=== PATIENT | female | born 1960 | race Caucasian/White ===

== ENCOUNTER 2016-10-04 19:26 | Emergency (ER) | payer OTHER ==
[~2016-10-04] VITALS: Ht 167.6 cm; Wt 89.8 kg
[~2016-10-04 19:26] MED LIST: ADDERALL XR 1010 MG PO; ADDERALL XR 3030 MG PO; DOCUSATE SODIU100 MG PO; IRON325 M1 PO; LOVENOX40 MG/0.4 SC; METHADONE HCL40 MG PO; MORPHINE SULFAT15 M1 PO; POTASSIUM-9999 MG PO; TRAZODONE HCL100 MG PO; UNABLEOBTAIN
[2016-10-04 20:57] LABS: HEMATOCRIT 38.8 % (36.0-46.0); MCH 32.4 PG (29.0-34.0); MCHC 34.5 G/DL (30.0-36.0); MCV 93.9 FL (83-99); RED BLOOD COUNT 4.13 M/uL (3.80-5.20); WHITE BLOOD COUNT 9.8 K/uL (4.1-10.2)
[2016-10-04 21:05] LABS: CHLORIDE 101 mEq/L (99-109); SODIUM 132 mEq/L (136-147)
[2016-10-04 21:07] LABS: GLUCOSE 69 mg/dL (70-99)
[2016-10-04 21:08] LABS: ANION GAP 9 MEQ/L (2-14)
[2016-10-04 21:11] LABS: GFR ESTIMATE (CALCULATED) > 59 mL/min/
[2016-10-04 21:12] LABS: UREA NITROGEN (BUN) 13 mg/dL (9-23)
[2016-10-04 21:35] LABS: ABS NEUTROPHIL COUNT 8.6; ANISOCYTOSIS 1+; BAND NEUTROPHILS 16.8 % (0-8.0); EOSINOPHIL ABS CT 0.1; EOSINOPHILS 0.9 % (0-5.0); INSTRUMENT ABS NEUTROPHIL CT 8.1 K/uL; LYMPHOCYTES 0.9 % (15.0-45.0); MACROCYTES 1+; METAMYELOCYTES 2.6 %; PLAT.SUFFICIENCY DECREASED; PLATELET CLUMPS PRESENT - PLATELET COUNTS APPEARS DECREASED; SEG.NEUTROPHILS 70.8 % (46.0-76.0)
[2016-10-04 21:36] LABS: PLATELET COUNT UNABLE TO REPORT K/uL (156-360)
[2016-10-04] MEDS ORDERED: KEFLEX500 MG PO (22:46)
[2016-10-04 23:34] VITALS: BP 138/70
== END 2016-10-04 23:36 | disposition home or self-care (01) ==
LOC: EME 19:26 → EXP 19:26
DX: L03.115 Cellulitis of right lower limb (principal); L03.116 Cellulitis of left lower limb; F17.200 Nicotine dependence, unspecified, uncomplicated; Z88.0 Allergy status to penicillin
CPT/HCPCS: 80048; 81003; 83605; 85025; 99281; 99284; J0696

== ENCOUNTER 2016-10-07 17:16 | Inpatient (IN) | payer OTHER ==
[~2016-10-07] VITALS: Ht 167.6 cm; Wt 91.4 kg
[~2016-10-07 17:16] MED LIST changes: +KEFLEX500 MG PO
[2016-10-07 18:12] LABS: HEMATOCRIT 38.4 % (36.0-46.0); MCH 32.1 PG (29.0-34.0); MCHC 34.4 G/DL (30.0-36.0); MCV 93.4 FL (83-99); RBC DIS.WIDTH-CV 14.9 % (11.8-14.6); RBC DIS.WIDTH-SD 51.8 % (39-53); RED BLOOD COUNT 4.11 M/uL (3.80-5.20); WHITE BLOOD COUNT 14.1 K/uL (4.1-10.2)
[2016-10-07 18:15] LABS: PLATELET COUNT 111 K/uL (156-360)
[2016-10-07 18:24] LABS: CHLORIDE 98 mEq/L (99-109); POTASSIUM 3.1 mEq/L (3.7-5.4); SODIUM 130 mEq/L (136-147)
[2016-10-07 18:27] LABS: ANION GAP 8 MEQ/L (2-14)
[2016-10-07 18:29] LABS: GFR ESTIMATE (CALCULATED) > 59 mL/min/
[2016-10-07 18:30] LABS: GLUCOSE 185 mg/dL (70-99); UREA NITROGEN (BUN) 20 mg/dL (9-23)
[2016-10-08 01:08] LABS: TOTAL BILIRUBIN 2.5 mg/dL (0.0-1.0)
[2016-10-08 01:09] LABS: ALKALINE PHOSPHATASE 117 IU/L (3-129)
[2016-10-08 01:12] LABS: DIRECT BILIRUBIN 1.9 mg/dL (0.0-0.3)
[2016-10-08 02:56] VITALS: BP 112/62
[2016-10-08 06:58] LABS: Estimated Average Glucose 80 mg/dL (70-123)
[2016-10-08 07:00] VITALS: BP 103/55
[2016-10-08 07:00] LABS: HEMOGLOBIN A1c (GLYCOHEMOGLOB) 4.4 % HGB (Below 5.7)
[2016-10-08 07:05] LABS: HEMATOCRIT 33.6 % (36.0-46.0); MCH 32.5 PG (29.0-34.0); MCHC 34.5 G/DL (30.0-36.0); MCV 94.1 FL (83-99); RBC DIS.WIDTH-CV 14.8 % (11.8-14.6); RBC DIS.WIDTH-SD 51.9 % (39-53); RED BLOOD COUNT 3.57 M/uL (3.80-5.20); WHITE BLOOD COUNT 9.4 K/uL (4.1-10.2)
[2016-10-08 07:23] LABS: ALKALINE PHOSPHATASE 108 IU/L (3-129); ANION GAP 7 MEQ/L (2-14); CHLORIDE 104 MEQ/L (99-109); GFR ESTIMATE (CALCULATED) > 59 mL/min/; POTASSIUM 3.1 MEQ/L (3.7-5.4); SAMPLE HEMOLYSIS CHECK 0; SAMPLE ICTERIC CHECK 0; SAMPLE LIPEMIA CHECK 0; SODIUM 135 MEQ/L (136-147); TOTAL BILIRUBIN 2.1 MG/DL (0.0-1.0); UREA NITROGEN (BUN) 16 mg/dL (9-23)
[2016-10-08 07:26] LABS: GLUCOSE 96 mg/dL (70-99)
[2016-10-08 08:11] LABS: ABS NEUTROPHIL COUNT 7.9; ANISOCYTOSIS 2+; BAND NEUTROPHILS 1.8 % (0-8.0); BASOPHILS 0.9 %; BURR CELLS 1+; EOSINOPHIL ABS CT 0.1; EOSINOPHILS 0.9 % (0-5.0); HEMATOLOGY COMMENT 1 SN; INSTRUMENT ABS NEUTROPHIL CT 5.5 K/uL; LYMPHOCYTES 4.5 % (15.0-45.0); MACROCYTES 1+; MEAN PLAT.VOLUME 11.7 uM^3 (9.5-12.4); METAMYELOCYTES 3.6 %; NUCLEATED RBC'S 0.9; PLAT.SUFFICIENCY DECREASED; PLATELET COUNT 87 K/uL (156-360); POIKILOCYTOSIS 2+
[2016-10-08 10:40] LABS: ANTI-HEPATITIS A VIRUS (IGM) Nonreactive; HAV INDEX 0.14
[2016-10-08 10:42] LABS: ANTI-HEPATITIS B CORE (IGM) Nonreactive; HBC IgM INDEX 0.15; HIV-1/2 AB/AG COMBO Nonreactive
[2016-10-08 10:43] LABS: HPCA INDEX 11.98
[2016-10-08 15:49] VITALS: BP 103/64
[2016-10-08 23:30] VITALS: BP 129/73
[2016-10-09 07:33] VITALS: BP 121/68
[2016-10-09 10:48] LABS: ANION GAP 2 MEQ/L (2-14); CHLORIDE 103 MEQ/L (99-109); GFR ESTIMATE (CALCULATED) > 59 mL/min/; GLUCOSE 128 mg/dL (70-99); SAMPLE HEMOLYSIS CHECK 0; SAMPLE ICTERIC CHECK 0; SAMPLE LIPEMIA CHECK 0; SODIUM 132 MEQ/L (136-147); UREA NITROGEN (BUN) 16 mg/dL (9-23)
[2016-10-09 10:51] LABS: POTASSIUM 4.3 MEQ/L (3.7-5.4)
[2016-10-09 16:16] VITALS: BP 111/62
[2016-10-09 23:05] VITALS: BP 105/60
[2016-10-10 08:36] VITALS: BP 113/61
[2016-10-10 17:59] LABS: UR CREATININE CONCENTRATION 136.6 MG/DL
[2016-10-10 20:10] VITALS: BP 125/78
[2016-10-10 22:55] VITALS: BP 132/64
[2016-10-11 07:08] LABS: HEMATOCRIT 35.9 % (36.0-46.0); MCH 32.2 PG (29.0-34.0); MCHC 33.1 G/DL (30.0-36.0); MCV 97.3 FL (83-99); PLATELET COUNT 106 K/uL (156-360); RBC DIS.WIDTH-CV 14.9 % (11.8-14.6); RBC DIS.WIDTH-SD 54.1 % (39-53); RED BLOOD COUNT 3.69 M/uL (3.80-5.20); WHITE BLOOD COUNT 6.8 K/uL (4.1-10.2)
[2016-10-11 07:36] LABS: ANION GAP 3 MEQ/L (2-14); CHLORIDE 109 MEQ/L (99-109); GFR ESTIMATE (CALCULATED) > 59 mL/min/; POTASSIUM 4.4 MEQ/L (3.7-5.4); SAMPLE HEMOLYSIS CHECK 0; SAMPLE ICTERIC CHECK 0; SAMPLE LIPEMIA CHECK 0; SODIUM 135 MEQ/L (136-147); UREA NITROGEN (BUN) 17 mg/dL (9-23)
[2016-10-11 07:37] LABS: GLUCOSE 76 mg/dL (70-99)
[2016-10-11 07:41] VITALS: BP 118/69
[2016-10-11 15:58] VITALS: BP 117/67
[2016-10-11 23:48] VITALS: BP 129/78
[2016-10-12 07:35] VITALS: BP 112/66
[2016-10-12 15:01] VITALS: BP 133/71
[2016-10-13 00:08] VITALS: BP 146/69
[2016-10-13 07:45] VITALS: BP 129/62
[2016-10-13 15:20] VITALS: BP 107/70
[2016-10-14 00:38] VITALS: BP 139/77
[2016-10-14 06:49] LABS: GFR ESTIMATE (CALCULATED) > 59 mL/min/
[2016-10-14 08:18] VITALS: BP 114/62
[2016-10-14 08:37] LABS: HEMATOCRIT 35.5 % (36.0-46.0); MCH 31.8 PG (29.0-34.0); MCHC 32.4 G/DL (30.0-36.0); MCV 98.1 FL (83-99); MEAN PLAT.VOLUME 10.8 uM^3 (9.5-12.4); PLATELET COUNT 91 K/uL (156-360); RBC DIS.WIDTH-CV 14.4 % (11.8-14.6); RBC DIS.WIDTH-SD 52.5 % (39-53); RED BLOOD COUNT 3.62 M/uL (3.80-5.20); WHITE BLOOD COUNT 4.4 K/uL (4.1-10.2)
[2016-10-14 08:59] LABS: ANION GAP 8 MEQ/L (2-14); CHLORIDE 107 MEQ/L (99-109); GLUCOSE 65 mg/dL (70-99); POTASSIUM 4.5 MEQ/L (3.7-5.4); SODIUM 134 MEQ/L (136-147); UREA NITROGEN (BUN) 16 mg/dL (9-23)
[2016-10-14 09:00] LABS: GFR ESTIMATE (CALCULATED) > 59 mL/min/
[2016-10-14 16:00] VITALS: BP 126/70
[2016-10-14 23:25] VITALS: BP 114/67
[2016-10-15 06:55] VITALS: BP 101/53
[2016-10-15 09:47] LABS: HEMATOCRIT 30.6 % (36.0-46.0); MCH 32.6 PG (29.0-34.0); MCHC 33.3 G/DL (30.0-36.0); MCV 97.8 FL (83-99); MEAN PLAT.VOLUME 10.7 uM^3 (9.5-12.4); PLATELET COUNT 83 K/uL (156-360); RBC DIS.WIDTH-CV 14.4 % (11.8-14.6); RBC DIS.WIDTH-SD 51.8 % (39-53); RED BLOOD COUNT 3.13 M/uL (3.80-5.20); WHITE BLOOD COUNT 3.2 K/uL (4.1-10.2)
[2016-10-15 10:13] LABS: ANION GAP 4 MEQ/L (2-14); CHLORIDE 107 MEQ/L (99-109); GFR ESTIMATE (CALCULATED) > 59 mL/min/; POTASSIUM 4.4 MEQ/L (3.7-5.4); SAMPLE HEMOLYSIS CHECK 0; SAMPLE ICTERIC CHECK 0; SAMPLE LIPEMIA CHECK 0; SODIUM 134 MEQ/L (136-147); UREA NITROGEN (BUN) 14 mg/dL (9-23)
[2016-10-15 10:24] LABS: GLUCOSE 125 mg/dL (70-99)
[2016-10-15] MEDS ORDERED: ROCEPHIN 2 GM VI2 GM IV (10:53)
[2016-10-15] MEDS ORDERED: BACTROBAN OINTM22 GM TP (10:54)
[2016-10-15 11:00] VITALS: BP 104/59
[2016-10-15 18:09] VITALS: BP 118/56
== END 2016-10-15 18:09 | disposition home health service (06) | DRG 872 ==
LOC: EME 17:16 → EDOF 23:53 → 5EAST 23:53
PROVIDERS: Internal Medicine; Physician Assistant; Student in an Organized Health Care Education/Training Program
DX: A41.9 Sepsis, unspecified organism (principal); L03.116 Cellulitis of left lower limb; B95.5 Unspecified streptococcus as the cause of diseases classified elsewhere; I87.2 Venous insufficiency (chronic) (peripheral); R23.8 Other skin changes; E87.1 Hypo-osmolality and hyponatremia; E87.6 Hypokalemia; R73.9 Hyperglycemia, unspecified; I10 Essential (primary) hypertension; K21.9 Gastro-esophageal reflux disease without esophagitis; D69.6 Thrombocytopenia, unspecified; B18.2 Chronic viral hepatitis C; F11.20 Opioid dependence, uncomplicated; G89.29 Other chronic pain; M54.5 Low back pain; F17.200 Nicotine dependence, unspecified, uncomplicated; Z96.651 Presence of right artificial knee joint; Z59.0 Homelessness; Z88.0 Allergy status to penicillin
CPT/HCPCS: 73590; 73701; 80048; 80053; 80074; 80076; 80202; 81003; 82565; 82570; 83036; 83605; 83930; 83935; 84300; 85025; 85027; 86703; 87040; 87070; 87075; 87205; 93971; 99281; 99284; 99285; A6212; A6260; J0290; J0692; J0696; J1644; J1885; J3370; J7030; J7050

== ENCOUNTER 2016-10-26 14:28 | Inpatient (IN) | payer OTHER ==
[~2016-10-26] VITALS: Ht 167.6 cm; Wt 95.2 kg
[~2016-10-26 14:28] MED LIST changes: +BACTROBAN OINTM22 GM TP; +ROCEPHIN 2 GM VI2 GM IV
[2016-10-26 16:12] LABS: EOSINOPHIL (%) 4.6 % (0-5); EOSINOPHIL COUNT 0.2 K/uL (0-0.3); IMMATURE GRANULOCYTE (%) 0.3 % (0.0-0.7); INSTRUMENT ABS NEUTROPHIL CT 1.4 K/uL; LYMPHOCYTE COUNT 1.4 K/uL (1.0-2.8); MCH 31.5 PG (29.0-34.0); MCHC 33.5 G/DL (30.0-36.0); MCV 93.9 FL (83-99); MONOCYTE (%) 13.8 % (3-12); MONOCYTE COUNT 0.5 K/uL (0-0.8); NEUTROPHIL (%) 39.6 % (45-76); NEUTROPHIL COUNT 1.4 K/uL (1.8-6.4); PLATELET COUNT 103 K/uL (156-360); RBC DIS.WIDTH-CV 14.4 % (11.8-14.6); RBC DIS.WIDTH-SD 49.7 % (39-53); RED BLOOD COUNT 3.62 M/uL (3.80-5.20); WHITE BLOOD COUNT 3.5 K/uL (4.1-10.2)
[2016-10-26 16:22] LABS: CHLORIDE 102 mEq/L (99-109); POTASSIUM 3.4 mEq/L (3.7-5.4); SODIUM 136 mEq/L (136-147)
[2016-10-26 16:24] LABS: GLUCOSE 78 mg/dL (70-99)
[2016-10-26 16:25] LABS: ANION GAP 8 MEQ/L (2-14)
[2016-10-26 16:26] LABS: TOTAL BILIRUBIN 1.8 mg/dL (0.0-1.0)
[2016-10-26 16:27] LABS: ALKALINE PHOSPHATASE 118 IU/L (3-129)
[2016-10-26 16:28] LABS: GFR ESTIMATE (CALCULATED) > 59 mL/min/
[2016-10-26] MEDS ORDERED: CEPHALEXIN500 MG PO (16:28)
[2016-10-26 16:29] LABS: UREA NITROGEN (BUN) 8 mg/dL (9-23)
[2016-10-26] MEDS ORDERED: ROCEPHIN2 GM/50 ML IV (17:48)
[2016-10-26] MEDS ORDERED: DEXTROAMP-AMPHE10 MG PO (17:53)
[2016-10-26] MEDS ORDERED: DEXTROAMP-AMPHE30 MG PO (17:53)
[2016-10-26 17:54] LABS: ADD MIUA? YES; BILIRUBIN NEGATIVE; BLOOD NEGATIVE; COLOR YELLOW ((YELLOW)); GLUCOSE (STRIP) NEGATIVE; KETONES NEGATIVE; LEUKOCYTES NEGATIVE; NITRITE NEGATIVE; PROTEIN (STRIP) NEGATIVE; SPECIFIC GRAVITY 1.011 (1.000-1.030)
[2016-10-26 18:17] LABS: BACTERIA RARE /HPF; CASTS NONE SEEN /LPF; CRYSTALS NONE SEEN; EPITHELIAL CELLS 1+ /HPF; MUCUS RARE /LPF; RED BLOOD CELLS 0-5 /HPF (0-5); UCUL ADDED? NO; WHITE BLOOD CELLS 0-5 /HPF (0-5)
[2016-10-26 22:16] VITALS: BP 150/72
[2016-10-27 06:36] LABS: EOSINOPHIL (%) 7.4 % (0-5); EOSINOPHIL COUNT 0.2 K/uL (0-0.3); HEMATOCRIT 31.7 % (36.0-46.0); INSTRUMENT ABS NEUTROPHIL CT 1.1 K/uL; LYMPHOCYTE COUNT 0.9 K/uL (1.0-2.8); MCH 31.9 PG (29.0-34.0); MCHC 33.4 G/DL (30.0-36.0); MCV 95.5 FL (83-99); MEAN PLAT.VOLUME 10.2 uM^3 (9.5-12.4); MONOCYTE (%) 18.5 % (3-12); MONOCYTE COUNT 0.5 K/uL (0-0.8); NEUTROPHIL (%) 40.2 % (45-76); NEUTROPHIL COUNT 1.1 K/uL (1.8-6.4); PLATELET COUNT 85 K/uL (156-360); RBC DIS.WIDTH-CV 14.7 % (11.8-14.6); RBC DIS.WIDTH-SD 51.1 % (39-53); RED BLOOD COUNT 3.32 M/uL (3.80-5.20); WHITE BLOOD COUNT 2.7 K/uL (4.1-10.2)
[2016-10-27 06:50] VITALS: BP 119/71
[2016-10-27 07:31] LABS: ANION GAP 8 MEQ/L (2-14); CHLORIDE 107 MEQ/L (99-109); GFR ESTIMATE (CALCULATED) > 59 mL/min/; GLUCOSE 86 mg/dL (70-99); POTASSIUM 3.5 MEQ/L (3.7-5.4); SAMPLE HEMOLYSIS CHECK 0; SAMPLE ICTERIC CHECK 0; SAMPLE LIPEMIA CHECK 0; SODIUM 139 MEQ/L (136-147); UREA NITROGEN (BUN) 8 mg/dL (9-23)
[2016-10-27 15:30] VITALS: BP 119/71
[2016-10-28] VITALS: BP 128/62
[2016-10-28 05:58] LABS: HEMATOCRIT 32.3 % (36.0-46.0); MCH 32.6 PG (29.0-34.0); MCHC 34.4 G/DL (30.0-36.0); MEAN PLAT.VOLUME 10.4 uM^3 (9.5-12.4); PLATELET COUNT 80 K/uL (156-360); RBC DIS.WIDTH-CV 14.6 % (11.8-14.6); WHITE BLOOD COUNT 2.8 K/uL (4.1-10.2)
[2016-10-28 06:26] LABS: ANION GAP 5 MEQ/L (2-14); CHLORIDE 108 MEQ/L (99-109); GFR ESTIMATE (CALCULATED) > 59 mL/min/; GLUCOSE 78 mg/dL (70-99); POTASSIUM 3.3 MEQ/L (3.7-5.4); SAMPLE HEMOLYSIS CHECK 0; SAMPLE ICTERIC CHECK 0; SAMPLE LIPEMIA CHECK 0; SODIUM 139 MEQ/L (136-147); UREA NITROGEN (BUN) 8 mg/dL (9-23)
[2016-10-28 06:48] VITALS: BP 120/65
[2016-10-28 15:57] VITALS: BP 64/54
[2016-10-29 00:15] VITALS: BP 118/59
[2016-10-29 06:35] LABS: EOSINOPHIL (%) 6.3 % (0-5); EOSINOPHIL COUNT 0.2 K/uL (0-0.3); HEMATOCRIT 33.5 % (36.0-46.0); IMMATURE GRANULOCYTE (%) 0.3 % (0.0-0.7); INSTRUMENT ABS NEUTROPHIL CT 1.3 K/uL; MCH 32.9 PG (29.0-34.0); MCV 96.8 FL (83-99); MEAN PLAT.VOLUME 10.2 uM^3 (9.5-12.4); MONOCYTE COUNT 0.5 K/uL (0-0.8); NEUTROPHIL (%) 44.1 % (45-76); NEUTROPHIL COUNT 1.3 K/uL (1.8-6.4); PLATELET COUNT 83 K/uL (156-360); RBC DIS.WIDTH-CV 15.1 % (11.8-14.6); RBC DIS.WIDTH-SD 53.4 % (39-53); RED BLOOD COUNT 3.46 M/uL (3.80-5.20)
[2016-10-29 06:58] LABS: ANION GAP 10 MEQ/L (2-14); CHLORIDE 108 MEQ/L (99-109); GFR ESTIMATE (CALCULATED) > 59 mL/min/; GLUCOSE 76 mg/dL (70-99); POTASSIUM 3.7 MEQ/L (3.7-5.4); SAMPLE HEMOLYSIS CHECK 0; SAMPLE ICTERIC CHECK 0; SAMPLE LIPEMIA CHECK 0; SODIUM 137 MEQ/L (136-147); UREA NITROGEN (BUN) 8 mg/dL (9-23)
[2016-10-29 08:51] VITALS: BP 110/58
[2016-10-29] MEDS ORDERED: BACTRIM,SEPT1 TABLET PO (11:34)
[2016-10-29] MEDS ORDERED: LEVAQUIN750 MG PO (11:34)
[2016-10-29] MEDS ORDERED: NIFEDIPINE ER30 MG PO (11:52)
== END 2016-10-29 14:25 | disposition home health service (06) | DRG 918 ==
LOC: EME → EDBD 14:28 → 5EAST 17:56 → EDOF 17:56 → 5EAST 21:20
PROVIDERS: Emergency Medicine; Hospitalist; Internal Medicine; Student in an Organized Health Care Education/Training Program
DX: T63.331A Toxic effect of venom of brown recluse spider, accidental (unintentional), initial encounter (principal); D69.6 Thrombocytopenia, unspecified; F11.20 Opioid dependence, uncomplicated; L97.929 Non-pressure chronic ulcer of unspecified part of left lower leg with unspecified severity; L03.116 Cellulitis of left lower limb; Z86.19 Personal history of other infectious and parasitic diseases; I89.0 Lymphedema, not elsewhere classified; I87.8 Other specified disorders of veins; F17.210 Nicotine dependence, cigarettes, uncomplicated; M19.90 Unspecified osteoarthritis, unspecified site; G47.00 Insomnia, unspecified; G89.29 Other chronic pain; I10 Essential (primary) hypertension; K21.9 Gastro-esophageal reflux disease without esophagitis; Z59.0 Homelessness; Z68.33 Body mass index [BMI] 33.0-33.9, adult; Z74.09 Other reduced mobility; Z80.8 Family history of malignant neoplasm of other organs or systems; Z82.49 Family history of ischemic heart disease and other diseases of the circulatory system; Z91.19 Patient's noncompliance with other medical treatment and regimen; Z96.659 Presence of unspecified artificial knee joint; B95.62 Methicillin resistant Staphylococcus aureus infection as the cause of diseases classified elsewhere; B96.5 Pseudomonas (aeruginosa) (mallei) (pseudomallei) as the cause of diseases classified elsewhere; B95.5 Unspecified streptococcus as the cause of diseases classified elsewhere
CPT/HCPCS: 73590; 80048; 80053; 80076; 80202; 81003; 82550; 83605; 85025; 85027; 87040; 87070; 87075; 87077; 87147; 87186; 87205; 87801; 93970; 99281; 99285; A6260; J0690; J0692; J1644; J1885; J2270; J3370; J7030; J7050

== ENCOUNTER 2017-01-26 16:20 | Inpatient (IN) | payer OTHER ==
[~2017-01-26] VITALS: Ht 167.6 cm; Wt 96.3 kg
[~2017-01-26 16:20] MED LIST changes: +BACTRIM,SEPT1 TABLET PO; +CEPHALEXIN500 MG PO; +DEXTROAMP-AMPHE10 MG PO; +DEXTROAMP-AMPHE30 MG PO; +LEVAQUIN750 MG PO; +NIFEDIPINE ER30 MG PO; +ROCEPHIN2 GM/50 ML IV
[2017-01-26 16:43] LABS: POINT-OF-CARE METER ID UU13113702
[2017-01-26 17:44] LABS: BASE EXCESS -10.6 mEq/L (-3 to +3); BICARBONATE 16.3 mEq/L (22-26); CARBOXY HGB 2.6 % (0-5); COMMENTS - BLOOD GASES A+C+; DEVICE VENT; FI02 60 %; MECHANICAL RATE 16 resp/min; METHEMOGLOBIN 1.1 % (0-1.5); MODE ACVC; PCO2 39 mm Hg (35-45); PEEP 5 CM/H20; PO2 123 mm Hg (80-100); SITE LR; TIDAL VOLUME 400 ML; TOTAL RESP RATE 40 resp/min; pH 7.23 (7.35-7.45)
[2017-01-26 17:52] LABS: BASOPHIL COUNT 0.1 K/uL (0-0.1); EOSINOPHIL (%) 0.3 % (0-5); EOSINOPHIL COUNT 0.1 K/uL (0-0.3); HEMATOCRIT 33.5 % (36.0-46.0); IMMATURE GRANULOCYTE (%) 1.2 % (0.0-0.7); IMMATURE GRANULOCYTE COUNT 0.3 K/uL; INSTRUMENT ABS NEUTROPHIL CT 13.7 K/uL; LYMPHOCYTE COUNT 6.8 K/uL (1.0-2.8); MCH 31.2 PG (29.0-34.0); MCHC 32.8 G/DL (30.0-36.0); MCV 94.9 FL (83-99); MEAN PLAT.VOLUME 11.5 uM^3 (9.5-12.4); MONOCYTE (%) 6.4 % (3-12); MONOCYTE COUNT 1.4 K/uL (0-0.8); NEUTROPHIL (%) 61.3 % (45-76); NEUTROPHIL COUNT 13.7 K/uL (1.8-6.4); NRBC (%) 0.1 /100 WBC (0-0); PLATELET COUNT 241 K/uL (156-360); RBC DIS.WIDTH-CV 14.3 % (11.8-14.6); RBC DIS.WIDTH-SD 48.8 % (39-53); RED BLOOD COUNT 3.53 M/uL (3.80-5.20); WHITE BLOOD COUNT 22.3 K/uL (4.1-10.2)
[2017-01-26 18:00] LABS: CHLORIDE 109 mEq/L (99-109); POTASSIUM 4.4 mEq/L (3.7-5.4); SODIUM 143 mEq/L (136-147)
[2017-01-26 18:03] LABS: GLUCOSE 164 mg/dL (70-99)
[2017-01-26 18:04] LABS: ANION GAP 18 MEQ/L (2-14)
[2017-01-26 18:05] LABS: TOTAL BILIRUBIN 2.5 mg/dL (0.0-1.0)
[2017-01-26 18:06] LABS: SERUM ETHYL ALCOHOL < 10 mg/dL
[2017-01-26 18:07] LABS: ALKALINE PHOSPHATASE 91 IU/L (3-129); GFR ESTIMATE (CALCULATED) > 59 mL/min/
[2017-01-26 18:09] LABS: UREA NITROGEN (BUN) 45 mg/dL (9-23)
[2017-01-26 18:10] LABS: SALICYLATE < 5.0 MG/DL (15-30)
[2017-01-26 18:26] LABS: TROP-I INTERPRETATION NEGATIVE; TROPONIN-I 0.05 ng/mL (0.0-0.30)
[2017-01-26 19:04] LABS: ADD MIUA? NO; BILIRUBIN NEGATIVE; BLOOD NEGATIVE; COLOR AMBER ((YELLOW)); GLUCOSE (STRIP) NEGATIVE; KETONES 5; LEUKOCYTES NEGATIVE; NITRITE NEGATIVE; PROTEIN (STRIP) 30; SPECIFIC GRAVITY 1.027 (1.000-1.030); UCUL ADDED? NO
[2017-01-26 19:21] LABS: AMPHETAMINE PRESUMPTIVE POSITIVE (500 ng/mL); BARBITURATES NEGATIVE (200 ng/mL); BENZODIAZEPINES NEGATIVE (150 ng/mL); COCAINE NEGATIVE (150 ng/mL); METHADONE PRESUMPTIVE POSITIVE (200 ng/mL); METHAMPHETAMINE NEGATIVE (500 ng/mL); OPIATES (MORPHINE) NEGATIVE (100 ng/mL); OXYCODONE NEGATIVE (100 ng/mL); PHENCYCLIDINE NEGATIVE (25 ng/mL); PROPOXYPHENE NEGATIVE (300 ng/mL); THC CANNABINOIDS NEGATIVE (50 ng/mL); TRICYCLIC ANTIDEPRESSANTS PRESUMPTIVE POSITIVE (300 ng/mL)
[2017-01-26 19:22] LABS: ADD MEDTOX COMMENT Y; INTERNAL CONTROLS VALID? YES
[2017-01-26 20:21] LABS: POINT-OF-CARE METER ID UU13113702
[2017-01-26 22:00] VITALS: BP 120/70; BP 144/89
[2017-01-26 22:15] LABS: METH RESISTANT S AUREUS PCR NEGATIVE (NEGATIVE)
[2017-01-26 22:21] LABS: PROBE CHECK PASS; SPECIMEN PROCESSING CONTROL PASS
[2017-01-26 23:00] VITALS: BP 138/97
[2017-01-27] VITALS (24 sets, daily range): BP systolic 0–155; BP diastolic 0–108
[2017-01-27 01:00] LABS: BASE EXCESS -0.1 mEq/L (-3 to +3); METHEMOGLOBIN 1.6 % (0-1.5)
[2017-01-27 01:01] LABS: BICARBONATE 22.6 mEq/L (22-26); COMMENTS - BLOOD GASES C+; DEVICE VENT; FI02 30 %; INSPIRATION TIME 1.1 seconds; MECHANICAL RATE 16 resp/min; MODE AC/VC+; PCO2 29 mm Hg (35-45); PEEP 5 CM/H20; PO2 76 mm Hg (80-100); SITE RR; TIDAL VOLUME 300 ML; TOTAL RESP RATE 26 resp/min
[2017-01-27 04:42] LABS: HEMATOCRIT 26.2 % (36.0-46.0); MCH 31.5 PG (29.0-34.0); MCHC 34.4 G/DL (30.0-36.0); MCV 91.6 FL (83-99); RBC DIS.WIDTH-CV 14.1 % (11.8-14.6); RBC DIS.WIDTH-SD 46.5 % (39-53); RED BLOOD COUNT 2.86 M/uL (3.80-5.20); WHITE BLOOD COUNT 14.7 K/uL (4.1-10.2)
[2017-01-27 04:44] LABS: INTER. NORMALIZED RATIO 1.8; PROTHROMBIN TIME 20.2 SEC (10.2-12.9)
[2017-01-27 04:47] LABS: PTT 32.7 SEC (25-37)
[2017-01-27 05:49] LABS: CHLORIDE 116 mEq/L (99-109); POTASSIUM 3.6 mEq/L (3.7-5.4); SODIUM 144 mEq/L (136-147)
[2017-01-27 05:53] LABS: ANION GAP 11 MEQ/L (2-14)
[2017-01-27 05:55] LABS: MEAN PLAT.VOLUME 11.7 uM^3 (9.5-12.4)
[2017-01-27 05:56] LABS: PLAT.SUFFICIENCY ADEQUATE
[2017-01-27 06:04] LABS: GLUCOSE 150 mg/dL (70-99)
[2017-01-27 06:05] LABS: PLATELET COUNT 154 K/uL (156-360)
[2017-01-27 06:08] LABS: GFR ESTIMATE (CALCULATED) > 59 mL/min/
[2017-01-27 06:09] LABS: UREA NITROGEN (BUN) 52 mg/dL (9-23)
[2017-01-27 10:57] LABS: EOSINOPHIL (%) 0.6 % (0-5); EOSINOPHIL COUNT 0.1 K/uL (0-0.3); HEMATOCRIT 26.7 % (36.0-46.0); IMMATURE GRANULOCYTE (%) 0.5 % (0.0-0.7); IMMATURE GRANULOCYTE COUNT 0.1 K/uL; INSTRUMENT ABS NEUTROPHIL CT 8.2 K/uL; MCH 30.9 PG (29.0-34.0); MCHC 33.7 G/DL (30.0-36.0); MCV 91.8 FL (83-99); MEAN PLAT.VOLUME 11.6 uM^3 (9.5-12.4); MONOCYTE (%) 9.6 % (3-12); MONOCYTE COUNT 1.2 K/uL (0-0.8); NEUTROPHIL COUNT 8.2 K/uL (1.8-6.4); PLATELET COUNT 164 K/uL (156-360); RBC DIS.WIDTH-CV 14.5 % (11.8-14.6); RBC DIS.WIDTH-SD 47.8 % (39-53); RED BLOOD COUNT 2.91 M/uL (3.80-5.20); WHITE BLOOD COUNT 12.6 K/uL (4.1-10.2)
[2017-01-27 11:49] LABS: ANION GAP 11 MEQ/L (2-14); CHLORIDE 112 MEQ/L (99-109); GFR ESTIMATE (CALCULATED) > 59 mL/min/; GLUCOSE 148 mg/dL (70-99); MAGNESIUM 1.4 mg/dl (1.3-2.7); POTASSIUM 3.5 MEQ/L (3.7-5.4); SAMPLE HEMOLYSIS CHECK 0; SAMPLE ICTERIC CHECK 0; SAMPLE LIPEMIA CHECK 0; SODIUM 145 MEQ/L (136-147); UREA NITROGEN (BUN) 50 mg/dL (9-23)
[2017-01-28] VITALS (27 sets, daily range): BP systolic 109–155; BP diastolic 59–93
[2017-01-28 05:32] LABS: ANION GAP 6 MEQ/L (2-14); CHLORIDE 115 MEQ/L (99-109); GFR ESTIMATE (CALCULATED) > 59 mL/min/; GLUCOSE 128 mg/dL (70-99); POTASSIUM 3.4 MEQ/L (3.7-5.4); SAMPLE HEMOLYSIS CHECK 0; SAMPLE ICTERIC CHECK 0; SAMPLE LIPEMIA CHECK 0; SODIUM 144 MEQ/L (136-147); UREA NITROGEN (BUN) 36 mg/dL (9-23)
[2017-01-28 05:35] LABS: EOSINOPHIL (%) 2.5 % (0-5); EOSINOPHIL COUNT 0.2 K/uL (0-0.3); HEMATOCRIT 22.6 % (36.0-46.0); HEMATOLOGY COMMENT 1 SN; IMMATURE GRANULOCYTE (%) 0.3 % (0.0-0.7); INSTRUMENT ABS NEUTROPHIL CT 4.1 K/uL; LYMPHOCYTE COUNT 2.2 K/uL (1.0-2.8); MCH 31.1 PG (29.0-34.0); MCHC 32.7 G/DL (30.0-36.0); MONOCYTE (%) 10.3 % (3-12); MONOCYTE COUNT 0.8 K/uL (0-0.8); NEUTROPHIL (%) 55.7 % (45-76); NEUTROPHIL COUNT 4.1 K/uL (1.8-6.4); PLAT.SUFFICIENCY ADEQUATE; RBC DIS.WIDTH-CV 15.3 % (11.8-14.6); RBC DIS.WIDTH-SD 51.7 % (39-53); RED BLOOD COUNT 2.38 M/uL (3.80-5.20); WHITE BLOOD COUNT 7.3 K/uL (4.1-10.2)
[2017-01-28 05:36] LABS: PLATELET COUNT UNABLE TO REPORT K/uL (156-360)
[2017-01-28 05:39] LABS: BASE EXCESS 0.4 mEq/L (-3 to +3); BICARBONATE 24.3 mEq/L (22-26); COMMENTS - BLOOD GASES C+; DEVICE vent; FI02 30 %; METHEMOGLOBIN 1.4 % (0-1.5); MODE AC+; PCO2 35 mm Hg (35-45); PO2 87 mm Hg (80-100); SITE LR; pH 7.45 (7.35-7.45)
[2017-01-28 05:40] LABS: INSPIRATION TIME 1.1 seconds; MECHANICAL RATE 16 resp/min; PEEP 5 CM/H20; TIDAL VOLUME 300 ML; TOTAL RESP RATE 27 resp/min
[2017-01-28 08:24] LABS: MCH 31.6 PG (29.0-34.0); MCHC 33.2 G/DL (30.0-36.0); MCV 95.2 FL (83-99); MEAN PLAT.VOLUME 11.1 uM^3 (9.5-12.4); RBC DIS.WIDTH-CV 15.2 % (11.8-14.6); RBC DIS.WIDTH-SD 52.4 % (39-53); RED BLOOD COUNT 2.31 M/uL (3.80-5.20); WHITE BLOOD COUNT 6.2 K/uL (4.1-10.2)
[2017-01-28 08:37] LABS: INTER. NORMALIZED RATIO 1.5
[2017-01-28 09:00] LABS: PLATELET COUNT 110 K/uL (156-360)
[2017-01-28 14:58] LABS: HEMATOCRIT 20.7 % (36.0-46.0); MCV 95.8 FL (83-99)
[2017-01-29] VITALS (28 sets, daily range): BP systolic 85–136; BP diastolic 44–76
[2017-01-29 08:00] LABS: EOSINOPHIL (%) 3.8 % (0-5); EOSINOPHIL COUNT 0.1 K/uL (0-0.3); HEMATOCRIT 19.3 % (36.0-46.0); IMMATURE GRANULOCYTE (%) 0.5 % (0.0-0.7); INSTRUMENT ABS NEUTROPHIL CT 0.8 K/uL; LYMPHOCYTE COUNT 0.8 K/uL (1.0-2.8); MCH 30.7 PG (29.0-34.0); MCHC 32.1 G/DL (30.0-36.0); MCV 95.5 FL (83-99); MONOCYTE (%) 10.2 % (3-12); MONOCYTE COUNT 0.2 K/uL (0-0.8); NEUTROPHIL COUNT 0.8 K/uL (1.8-6.4); RBC DIS.WIDTH-CV 16.2 % (11.8-14.6); RED BLOOD COUNT 2.02 M/uL (3.80-5.20); WHITE BLOOD COUNT 1.9 K/uL (4.1-10.2)
[2017-01-29 08:14] LABS: MEAN PLAT.VOLUME 11.6 uM^3 (9.5-12.4); PLAT.SUFFICIENCY DECREASED
[2017-01-29 08:19] LABS: ANION GAP 6 MEQ/L (2-14); CHLORIDE 116 MEQ/L (99-109); GFR ESTIMATE (CALCULATED) > 59 mL/min/; GLUCOSE 91 mg/dL (70-99); MAGNESIUM 1.7 mg/dl (1.3-2.7); POTASSIUM 3.3 MEQ/L (3.7-5.4); SAMPLE HEMOLYSIS CHECK 0; SAMPLE ICTERIC CHECK 0; SAMPLE LIPEMIA CHECK 0; SODIUM 146 MEQ/L (136-147); UREA NITROGEN (BUN) 20 mg/dL (9-23)
[2017-01-29 08:20] LABS: PLATELET COUNT 66 K/uL (156-360)
[2017-01-29 19:25] LABS: EOSINOPHIL (%) 4.6 % (0-5); EOSINOPHIL COUNT 0.1 K/uL (0-0.3); HEMATOCRIT 21.4 % (36.0-46.0); INSTRUMENT ABS NEUTROPHIL CT 0.9 K/uL; LYMPHOCYTE COUNT 0.8 K/uL (1.0-2.8); MCH 31.1 PG (29.0-34.0); MCHC 33.2 G/DL (30.0-36.0); MCV 93.9 FL (83-99); MEAN PLAT.VOLUME 11.2 uM^3 (9.5-12.4); MONOCYTE (%) 9.6 % (3-12); MONOCYTE COUNT 0.2 K/uL (0-0.8); NEUTROPHIL (%) 46.2 % (45-76); NEUTROPHIL COUNT 0.9 K/uL (1.8-6.4); PLATELET COUNT 62 K/uL (156-360); RBC DIS.WIDTH-CV 16.8 % (11.8-14.6); RED BLOOD COUNT 2.28 M/uL (3.80-5.20)
[2017-01-30] VITALS (28 sets, daily range): BP systolic 94–150; BP diastolic 59–98
[2017-01-30 05:42] LABS: EOSINOPHIL (%) 4.9 % (0-5); EOSINOPHIL COUNT 0.1 K/uL (0-0.3); IMMATURE GRANULOCYTE (%) 0.5 % (0.0-0.7); LYMPHOCYTE COUNT 0.8 K/uL (1.0-2.8); MCH 31.9 PG (29.0-34.0); MCHC 33.6 G/DL (30.0-36.0); MCV 94.8 FL (83-99); MEAN PLAT.VOLUME 12.4 uM^3 (9.5-12.4); MONOCYTE (%) 10.7 % (3-12); MONOCYTE COUNT 0.2 K/uL (0-0.8); NEUTROPHIL (%) 46.3 % (45-76); RBC DIS.WIDTH-CV 16.8 % (11.8-14.6); RBC DIS.WIDTH-SD 55.3 % (39-53); RED BLOOD COUNT 2.32 M/uL (3.80-5.20); WHITE BLOOD COUNT 2.1 K/uL (4.1-10.2)
[2017-01-30 05:46] LABS: PLATELET COUNT 81 K/uL (156-360)
[2017-01-30 05:50] LABS: INTER. NORMALIZED RATIO 1.3; PROTHROMBIN TIME 14.4 SEC (10.2-12.9)
[2017-01-30 05:53] LABS: PTT 26.2 SEC (25-37)
[2017-01-30 06:33] LABS: ANION GAP 5 MEQ/L (2-14); CHLORIDE 115 MEQ/L (99-109); GFR ESTIMATE (CALCULATED) > 59 mL/min/; GLUCOSE 90 mg/dL (70-99); MAGNESIUM 1.9 mg/dl (1.3-2.7); POTASSIUM 3.8 MEQ/L (3.7-5.4); SAMPLE HEMOLYSIS CHECK 1; SAMPLE ICTERIC CHECK 0; SAMPLE LIPEMIA CHECK 0; SODIUM 144 MEQ/L (136-147); UREA NITROGEN (BUN) 18 mg/dL (9-23)
[2017-01-30 16:52] LABS: MCV 92.5 FL (83-99)
[2017-01-31] VITALS (13 sets, daily range): BP systolic 100–133; BP diastolic 63–90
[2017-01-31 08:38] LABS: HEMATOCRIT 25.4 % (36.0-46.0); MCH 31.1 PG (29.0-34.0); MCHC 34.3 G/DL (30.0-36.0); MCV 90.7 FL (83-99); MEAN PLAT.VOLUME 11.5 uM^3 (9.5-12.4); PLATELET COUNT 72 K/uL (156-360); RBC DIS.WIDTH-CV 16.2 % (11.8-14.6); RBC DIS.WIDTH-SD 50.6 % (39-53)
[2017-01-31 08:49] LABS: CHLORIDE 110 mEq/L (99-109); POTASSIUM 3.2 mEq/L (3.7-5.4); SODIUM 137 mEq/L (136-147)
[2017-01-31 08:50] LABS: MAGNESIUM 1.2 mg/dL (1.3-2.7)
[2017-01-31 08:51] LABS: GLUCOSE 102 mg/dL (70-99)
[2017-01-31 08:52] LABS: ANION GAP 5 MEQ/L (2-14)
[2017-01-31 08:55] LABS: GFR ESTIMATE (CALCULATED) > 59 mL/min/
[2017-01-31 08:56] LABS: UREA NITROGEN (BUN) 12 mg/dL (9-23)
[2017-01-31] MEDS ORDERED: METHADOSE40 MG PO (10:43)
[2017-01-31] MEDS ORDERED: DESYREL100 MG PO (10:44)
[2017-01-31] MEDS ORDERED: ADDERALL XR 2020 MG PO ×2 (10:46)
[2017-01-31 11:58] LABS: C DIFF TOXIN NEGATIVE (NEGATIVE)
[2017-01-31 12:01] LABS: PROBE CHECK PASS; SPECIMEN PROCESSING CONTROL PASS
[2017-01-31 15:41] LABS: IRON 25 MCG/DL (35-150)
[2017-01-31 17:29] LABS: FERRITIN 118 NG/ML (10-291)
[2017-02-01 01:56] VITALS: BP 143/72
[2017-02-01 06:26] LABS: HEMATOCRIT 25.6 % (36.0-46.0); MCH 31.4 PG (29.0-34.0); MCHC 34.4 G/DL (30.0-36.0); MCV 91.4 FL (83-99); MEAN PLAT.VOLUME 11.7 uM^3 (9.5-12.4); PLATELET COUNT 73 K/uL (156-360); RBC DIS.WIDTH-SD 52.4 % (39-53); WHITE BLOOD COUNT 2.8 K/uL (4.1-10.2)
[2017-02-01 06:45] VITALS: BP 155/83
[2017-02-01 06:50] LABS: ANION GAP 8 MEQ/L (2-14); CHLORIDE 108 MEQ/L (99-109); GFR ESTIMATE (CALCULATED) > 59 mL/min/; GLUCOSE 109 mg/dL (70-99); POTASSIUM 3.5 MEQ/L (3.7-5.4); SAMPLE HEMOLYSIS CHECK 0; SAMPLE ICTERIC CHECK 0; SAMPLE LIPEMIA CHECK 0; SODIUM 139 MEQ/L (136-147); UREA NITROGEN (BUN) 8 mg/dL (9-23)
[2017-02-01 06:51] LABS: MAGNESIUM 1.3 mg/dl (1.3-2.7)
[2017-02-02 00:27] VITALS: BP 142/60
[2017-02-02 07:08] LABS: EOSINOPHIL (%) 7.3 % (0-5); EOSINOPHIL COUNT 0.2 K/uL (0-0.3); HEMATOCRIT 25.4 % (36.0-46.0); IMM.RETIC FRACTION 21.9 % (3-19); LYMPHOCYTE COUNT 0.8 K/uL (1.0-2.8); MCH 30.1 PG (29.0-34.0); MCHC 33.1 G/DL (30.0-36.0); MEAN PLAT.VOLUME 11.2 uM^3 (9.5-12.4); MONOCYTE (%) 16.4 % (3-12); MONOCYTE COUNT 0.4 K/uL (0-0.8); NEUTROPHIL (%) 42.3 % (45-76); PLATELET COUNT 72 K/uL (156-360); RBC DIS.WIDTH-CV 15.9 % (11.8-14.6); RBC DIS.WIDTH-SD 52.2 % (39-53); RED BLOOD COUNT 2.79 M/uL (3.80-5.20); RETIC HGB EQUIVALENT 29.9 (28-36); RETICULOCYTE COUNT 5.6 % (0.5-1.8); WHITE BLOOD COUNT 2.3 K/uL (4.1-10.2)
[2017-02-02 07:34] LABS: ALKALINE PHOSPHATASE 59 IU/L (3-129); ANION GAP 5 MEQ/L (2-14); CHLORIDE 108 MEQ/L (99-109); DIRECT BILIRUBIN 0.6 mg/dL (0.0-0.3); GFR ESTIMATE (CALCULATED) > 59 mL/min/; GLUCOSE 92 mg/dL (70-99); MAGNESIUM 1.3 mg/dl (1.3-2.7); POTASSIUM 3.5 MEQ/L (3.7-5.4); SAMPLE HEMOLYSIS CHECK 0; SAMPLE ICTERIC CHECK 0; SAMPLE LIPEMIA CHECK 0; SODIUM 138 MEQ/L (136-147); TOTAL BILIRUBIN 1.4 MG/DL (0.0-1.0); UREA NITROGEN (BUN) 5 mg/dL (9-23)
[2017-02-02 08:52] VITALS: BP 117/58
[2017-02-02 15:18] VITALS: BP 137/76
[2017-02-02 23:30] VITALS: BP 132/59
[2017-02-03 06:24] LABS: EOSINOPHIL (%) 5.2 % (0-5); EOSINOPHIL COUNT 0.1 K/uL (0-0.3); HEMATOCRIT 25.3 % (36.0-46.0); IMMATURE GRANULOCYTE (%) 0.4 % (0.0-0.7); LYMPHOCYTE COUNT 0.8 K/uL (1.0-2.8); MCH 30.2 PG (29.0-34.0); MCHC 32.8 G/DL (30.0-36.0); MEAN PLAT.VOLUME 11.8 uM^3 (9.5-12.4); MONOCYTE (%) 20.6 % (3-12); MONOCYTE COUNT 0.5 K/uL (0-0.8); NEUTROPHIL (%) 40.1 % (45-76); PLATELET COUNT 68 K/uL (156-360); RBC DIS.WIDTH-CV 15.5 % (11.8-14.6); RBC DIS.WIDTH-SD 50.9 % (39-53); RED BLOOD COUNT 2.75 M/uL (3.80-5.20); WHITE BLOOD COUNT 2.5 K/uL (4.1-10.2)
[2017-02-03 06:53] LABS: ANION GAP 4 MEQ/L (2-14); CHLORIDE 108 MEQ/L (99-109); GFR ESTIMATE (CALCULATED) > 59 mL/min/; GLUCOSE 144 mg/dL (70-99); POTASSIUM 3.5 MEQ/L (3.7-5.4); SAMPLE HEMOLYSIS CHECK 0; SAMPLE ICTERIC CHECK 0; SAMPLE LIPEMIA CHECK 0; SODIUM 137 MEQ/L (136-147); UREA NITROGEN (BUN) 6 mg/dL (9-23)
[2017-02-03 07:36] VITALS: BP 134/70
[2017-02-03 16:18] VITALS: BP 108/58
[2017-02-03 20:00] VITALS: BP 168/97
[2017-02-04 00:16] VITALS: BP 138/78
[2017-02-04 07:51] VITALS: BP 177/77
[2017-02-04] MEDS ORDERED: Thiamine,Vitamin B1 PO (08:32)
[2017-02-04] MEDS ORDERED: XIFAXAN550 MG PO (08:32)
[2017-02-04] MEDS ORDERED: PANTOPRAZOLE SO40 MG PO (08:32)
[2017-02-04] MEDS ORDERED: FOLIC ACID1 MG PO (08:32)
[2017-02-04] MEDS ORDERED: NICOTINE PATCH1 EAC2 TD (08:32)
[2017-02-04] MEDS ORDERED: GABAPENTIN100 MG PO (08:32)
[2017-02-04] MEDS ORDERED: RISPERIDONE1 MG PO (08:32)
[2017-02-04] MEDS ORDERED: THERAGRAN1 TABLET PO (08:32)
[2017-02-04 10:12] VITALS: BP 147/86
[2017-02-04 15:33] VITALS: BP 151/69
[2017-02-04 17:53] LABS: HCV RNA (LOG IU/mL) 5.94 (<1.18)
[2017-02-06 00:22] LABS: LD-1/LD-2 RATIO 0.57 (())
== END 2017-02-04 19:10 | disposition home or self-care (01) | DRG 917 ==
LOC: EME → EDBD 16:20 → ENRESERV 19:42 → EDOF 20:16 → 5EAST 20:16 → 4WEST 20:16 → ENRESERV 01-31 06:53 → CANRESERV 01-31 14:36 → ENRESERV 01-31 15:30 → 5EAST 01-31 16:47
PROVIDERS: Emergency Medicine; Internal Medicine; Internal Medicine Critical Care Medicine; Specialist
DX: T50.901A Poisoning by unspecified drugs, medicaments and biological substances, accidental (unintentional), initial encounter (principal); K72.90 Hepatic failure, unspecified without coma; J96.01 Acute respiratory failure with hypoxia; G93.41 Metabolic encephalopathy; R00.0 Tachycardia, unspecified; J98.11 Atelectasis; K74.60 Unspecified cirrhosis of liver; G92 Toxic encephalopathy; D61.818 Other pancytopenia; E87.2 Acidosis; I10 Essential (primary) hypertension; B19.20 Unspecified viral hepatitis C without hepatic coma; F11.20 Opioid dependence, uncomplicated; I89.0 Lymphedema, not elsewhere classified; F17.200 Nicotine dependence, unspecified, uncomplicated; E87.6 Hypokalemia; D63.8 Anemia in other chronic diseases classified elsewhere; D62 Acute posthemorrhagic anemia; K21.9 Gastro-esophageal reflux disease without esophagitis; G89.29 Other chronic pain; Z96.651 Presence of right artificial knee joint; F29 Unspecified psychosis not due to a substance or known physiological condition; M17.11 Unilateral primary osteoarthritis, right knee; K29.70 Gastritis, unspecified, without bleeding; I87.8 Other specified disorders of veins; F05 Delirium due to known physiological condition; K25.4 Chronic or unspecified gastric ulcer with hemorrhage; F90.9 Attention-deficit hyperactivity disorder, unspecified type; E86.0 Dehydration; R56.9 Unspecified convulsions; L03.116 Cellulitis of left lower limb; K76.6 Portal hypertension; Z87.11 Personal history of peptic ulcer disease; Z79.891 Long term (current) use of opiate analgesic; Z88.0 Allergy status to penicillin; Z68.34 Body mass index [BMI] 34.0-34.9, adult; Z80.8 Family history of malignant neoplasm of other organs or systems; Z90.49 Acquired absence of other specified parts of digestive tract
CPT/HCPCS: 36600; 70450; 71010; 74176; 80048; 80048 91; 80053; 80076; 81003; 82140; 82607; 82728; 82746; 82803; 82948; 83010 90; 83540; 83605; 83615 90; 83625 90; 83735; 84100; 84484; 84999; 85014; 85018; 85025; 85025 91; 85027; 85045; 85610; 85730; 86850; 86900; 86901; 86920; 87040; 87070; 87205; 87493; 87522 90; 87641; 88305; 88342 TC; 93005; 94002; 94003; 94640; 94640 76; 94760; 99202; 99281; 99285; C1751; C9113; G0480; J0330; J0692; J0696; J1630; J1650; J2060; J2405; J2704; J3010; J3370; J3411; J3430; J3475; J3480; J7030; J7050; J7120; P9016; S0028

== ENCOUNTER 2017-02-21 05:27 | Emergency (ER) | payer OTHER ==
[~2017-02-21] VITALS: Ht 167.6 cm; Wt 85.3 kg
[~2017-02-21 05:27] MED LIST changes: +ADDERALL XR 2020 MG PO; +DESYREL100 MG PO; +FOLIC ACID1 MG PO; +GABAPENTIN100 MG PO; +METHADOSE40 MG PO; +NICOTINE PATCH1 EAC2 TD; +PANTOPRAZOLE SO40 MG PO; +RISPERIDONE1 MG PO; +THERAGRAN1 TABLET PO; +Thiamine,Vitamin B1 PO; +XIFAXAN550 MG PO
[2017-02-21 06:25] LABS: HEMATOCRIT 29.9 % (36.0-46.0); MCHC 32.8 G/DL (30.0-36.0); MEAN PLAT.VOLUME 11.8 uM^3 (9.5-12.4); RBC DIS.WIDTH-CV 15.3 % (11.8-14.6); RBC DIS.WIDTH-SD 47.8 % (39-53); WHITE BLOOD COUNT 4.3 K/uL (4.1-10.2)
[2017-02-21 06:27] LABS: MCV 85.4 FL (83-99); PLATELET COUNT 117 K/uL (156-360)
[2017-02-21 06:31] LABS: CHLORIDE 109 mEq/L (99-109); POTASSIUM 3.5 mEq/L (3.7-5.4); SODIUM 137 mEq/L (136-147)
[2017-02-21 06:33] LABS: GLUCOSE 188 mg/dL (70-99)
[2017-02-21 06:34] LABS: ANION GAP 6 MEQ/L (2-14)
[2017-02-21 06:36] LABS: ALKALINE PHOSPHATASE 109 IU/L (3-129)
[2017-02-21 06:37] LABS: GFR ESTIMATE (CALCULATED) > 59 mL/min/
[2017-02-21 06:38] LABS: UREA NITROGEN (BUN) 11 mg/dL (9-23)
[2017-02-21 06:40] LABS: LIPASE 101 U/L (1.0-51.0)
[2017-02-21 08:37] LABS: ADD MIUA? YES; BILIRUBIN NEGATIVE; BLOOD NEGATIVE; COLOR YELLOW ((YELLOW)); GLUCOSE (STRIP) NEGATIVE; KETONES NEGATIVE; LEUKOCYTES LARGE; NITRITE NEGATIVE; PROTEIN (STRIP) NEGATIVE; SPECIFIC GRAVITY 1.008 (1.000-1.030); UROBILINOGEN 0.2 MG/DL (0.2-1.0)
[2017-02-21 08:50] LABS: BACTERIA RARE /HPF; EPITHELIAL CELLS 1+ /HPF; MUCUS TRACE /LPF; RED BLOOD CELLS 0-5 /HPF (0-5); UCUL ADDED? YES
[2017-02-21 11:16] VITALS: BP 146/88
== END 2017-02-21 11:17 | disposition home or self-care (01) ==
LOC: EME → EDBD 05:27 → EME 05:27
DX: R10.11 Right upper quadrant pain (principal); R11.2 Nausea with vomiting, unspecified; R19.7 Diarrhea, unspecified; K74.60 Unspecified cirrhosis of liver; J44.9 Chronic obstructive pulmonary disease, unspecified; K21.9 Gastro-esophageal reflux disease without esophagitis; I10 Essential (primary) hypertension; Z96.659 Presence of unspecified artificial knee joint; Z88.0 Allergy status to penicillin; F17.200 Nicotine dependence, unspecified, uncomplicated
CPT/HCPCS: 74177; 76705; 80053; 81003; 83690; 85027; 87086; 99281; 99285; J2270; J2405; J3010; J7030

== ENCOUNTER 2017-02-23 13:27 | Inpatient (IN) | payer OTHER ==
[~2017-02-23] VITALS: Ht 167.6 cm; Wt 81.8 kg
[~2017-02-23 13:27] MED LIST changes: -ADDERALL XR 2020 MG PO
[2017-02-23 14:41] LABS: EOSINOPHIL (%) 4.4 % (0-5); EOSINOPHIL COUNT 0.2 K/uL (0-0.3); HEMATOCRIT 30.6 % (36.0-46.0); IMMATURE GRANULOCYTE (%) 0.2 % (0.0-0.7); INSTRUMENT ABS NEUTROPHIL CT 2.4 K/uL; LYMPHOCYTE COUNT 1.5 K/uL (1.0-2.8); MCH 28.3 PG (29.0-34.0); MCV 85.7 FL (83-99); MEAN PLAT.VOLUME 11.9 uM^3 (9.5-12.4); MONOCYTE (%) 12.2 % (3-12); MONOCYTE COUNT 0.6 K/uL (0-0.8); NEUTROPHIL (%) 50.3 % (45-76); NEUTROPHIL COUNT 2.4 K/uL (1.8-6.4); PLATELET COUNT 116 K/uL (156-360); RBC DIS.WIDTH-CV 15.3 % (11.8-14.6); RBC DIS.WIDTH-SD 47.6 % (39-53); RED BLOOD COUNT 3.57 M/uL (3.80-5.20); WHITE BLOOD COUNT 4.7 K/uL (4.1-10.2)
[2017-02-23 14:50] LABS: CHLORIDE 111 mEq/L (99-109); POTASSIUM 3.8 mEq/L (3.7-5.4); SODIUM 141 mEq/L (136-147)
[2017-02-23 14:53] LABS: GLUCOSE 217 mg/dL (70-99)
[2017-02-23 14:54] LABS: ANION GAP 7 MEQ/L (2-14); TOTAL BILIRUBIN 0.9 mg/dL (0.0-1.0)
[2017-02-23 14:55] LABS: SERUM ETHYL ALCOHOL 27 mg/dL
[2017-02-23 14:56] LABS: ALKALINE PHOSPHATASE 103 IU/L (3-129); GFR ESTIMATE (CALCULATED) > 59 mL/min/
[2017-02-23 14:58] LABS: UREA NITROGEN (BUN) 10 mg/dL (9-23)
[2017-02-23 15:00] LABS: LIPASE 112 U/L (1.0-51.0)
[2017-02-23 17:13] LABS: ADD MIUA? YES; BILIRUBIN NEGATIVE; BLOOD NEGATIVE; COLOR YELLOW ((YELLOW)); GLUCOSE (STRIP) 150; KETONES NEGATIVE; LEUKOCYTES TRACE; NITRITE NEGATIVE; PROTEIN (STRIP) 30; SPECIFIC GRAVITY 1.021 (1.000-1.030)
[2017-02-23 17:20] LABS: BACTERIA NONE SEEN /HPF; CALCIUM OXALATE CRYSTALS 4+ /HPF; EPITHELIAL CELLS 1+ /HPF; MUCUS TRACE /LPF; RED BLOOD CELLS 0-5 /HPF (0-5); UCUL ADDED? YES
[2017-02-23 18:08] LABS: ADD MEDTOX COMMENT Y; AMPHETAMINE PRESUMPTIVE POSITIVE (500 ng/mL); BARBITURATES NEGATIVE (200 ng/mL); BENZODIAZEPINES NEGATIVE (150 ng/mL); COCAINE NEGATIVE (150 ng/mL); INTERNAL CONTROLS VALID? YES; METHADONE NEGATIVE (200 ng/mL); METHAMPHETAMINE NEGATIVE (500 ng/mL); OPIATES (MORPHINE) NEGATIVE (100 ng/mL); OXYCODONE NEGATIVE (100 ng/mL); PHENCYCLIDINE NEGATIVE (25 ng/mL); PROPOXYPHENE NEGATIVE (300 ng/mL); THC CANNABINOIDS NEGATIVE (50 ng/mL); TRICYCLIC ANTIDEPRESSANTS NEGATIVE (300 ng/mL)
[2017-02-23] MEDS ORDERED: NICODERM CQ1 EAC2 TD (18:39)
[2017-02-23] MEDS ORDERED: NEURONTIN100 MG PO (18:40)
[2017-02-23] MEDS ORDERED: NORCO 7.5/321 TABLET PO (18:41)
[2017-02-23] MEDS ORDERED: THERAGRAN1 TABLET PO (18:41)
[2017-02-23] MEDS ORDERED: ADDERALL20 MG PO (18:42)
[2017-02-23] MEDS ORDERED: DESYREL100 MG PO (18:42)
[2017-02-23] MEDS ORDERED: POTASSIUM CHLOR8 ME3 PO (18:43)
[2017-02-23 20:41] VITALS: BP 138/61
[2017-02-24 07:46] VITALS: BP 131/64
[2017-02-24] MEDS ORDERED: B-1100 MG PO (12:23)
[2017-02-24] MEDS ORDERED: FOLIC ACID1 MG PO (12:23)
[2017-02-24] MEDS ORDERED: XIFAXAN550 MG PO (12:24)
[2017-02-24 15:12] VITALS: BP 144/75
[2017-02-25 07:37] VITALS: BP 139/72
[2017-02-25] MEDS ORDERED: DESYREL100 MG PO (10:30)
[2017-02-25] MEDS ORDERED: B-1100 MG PO (10:30)
[2017-02-25] MEDS ORDERED: PANTOPRAZOLE SO40 MG PO (10:30)
[2017-02-25] MEDS ORDERED: THERAGRAN1 TABLET PO (10:30)
[2017-02-25] MEDS ORDERED: FOLIC ACID1 MG PO (10:30)
[2017-02-25] MEDS ORDERED: NEURONTIN300 MG PO (10:30)
== END 2017-02-25 13:45 | disposition home or self-care (01) | DRG 881 ==
LOC: EME 13:27 → EDBD 13:27 → EME 13:27 → 1WEST 19:00 → EDOF 19:00 → ENRESERV 20:26 → 1WEST 20:32
PROVIDERS: Emergency Medicine
DX: F43.21 Adjustment disorder with depressed mood (principal); R45.851 Suicidal ideations; Z59.0 Homelessness; F41.0 Panic disorder [episodic paroxysmal anxiety]; F11.20 Opioid dependence, uncomplicated; F19.10 Other psychoactive substance abuse, uncomplicated; F10.10 Alcohol abuse, uncomplicated; R41.0 Disorientation, unspecified; I10 Essential (primary) hypertension; K74.60 Unspecified cirrhosis of liver; B19.20 Unspecified viral hepatitis C without hepatic coma; D69.6 Thrombocytopenia, unspecified; I89.0 Lymphedema, not elsewhere classified; R60.9 Edema, unspecified; R10.9 Unspecified abdominal pain; G89.29 Other chronic pain; I87.8 Other specified disorders of veins; D64.9 Anemia, unspecified; F17.200 Nicotine dependence, unspecified, uncomplicated; M19.90 Unspecified osteoarthritis, unspecified site; R59.1 Generalized enlarged lymph nodes
CPT/HCPCS: 80053; 81003; 83690; 84999; 85025; 87086; 90839; 97150 GO; 99281; 99285; G0480; J2060; S0028

== ENCOUNTER 2017-02-28 04:06 | Inpatient (IN) | payer OTHER ==
[~2017-02-28] VITALS: Ht 167.6 cm; Wt 87.6 kg
[~2017-02-28 04:06] MED LIST changes: +ADDERALL20 MG PO; +B-1100 MG PO; +NEURONTIN100 MG PO; +NEURONTIN300 MG PO; +NICODERM CQ1 EAC2 TD; +NORCO 7.5/321 TABLET PO; +POTASSIUM CHLOR8 ME3 PO
[2017-02-28 04:44] LABS: HEMATOCRIT 28.7 % (36.0-46.0); MCH 28.7 PG (29.0-34.0); MCHC 33.1 G/DL (30.0-36.0); MCV 86.7 FL (83-99); MEAN PLAT.VOLUME 11.8 uM^3 (9.5-12.4); PLATELET COUNT 94 K/uL (156-360); RBC DIS.WIDTH-CV 15.8 % (11.8-14.6); RBC DIS.WIDTH-SD 50.3 % (39-53); RED BLOOD COUNT 3.31 M/uL (3.80-5.20); WHITE BLOOD COUNT 4.3 K/uL (4.1-10.2)
[2017-02-28 04:50] LABS: CHLORIDE 114 mEq/L (99-109); SODIUM 138 mEq/L (136-147)
[2017-02-28 04:53] LABS: GLUCOSE 186 mg/dL (70-99)
[2017-02-28 04:54] LABS: ANION GAP 3 MEQ/L (2-14); TOTAL BILIRUBIN 0.8 mg/dL (0.0-1.0)
[2017-02-28 04:56] LABS: ALKALINE PHOSPHATASE 103 IU/L (3-129)
[2017-02-28 05:00] LABS: GFR ESTIMATE (CALCULATED) > 59 mL/min/; UREA NITROGEN (BUN) 24 mg/dL (9-23)
[2017-02-28 05:11] LABS: INTER. NORMALIZED RATIO 1.2; PROTHROMBIN TIME 13.7 SEC (10.2-12.9)
[2017-02-28 05:13] LABS: PTT 28.5 SEC (25-37)
[2017-02-28 05:34] LABS: TROP-I INTERPRETATION NEGATIVE; TROPONIN-I 0.01 ng/mL (0.0-0.30)
[2017-02-28 08:12] LABS: MCV 87.8 FL (83-99)
[2017-02-28 08:23] LABS: ADD MIUA? YES; BILIRUBIN NEGATIVE; BLOOD NEGATIVE; COLOR YELLOW ((YELLOW)); GLUCOSE (STRIP) NEGATIVE; KETONES NEGATIVE; LEUKOCYTES SMALL; NITRITE NEGATIVE; PROTEIN (STRIP) NEGATIVE; SPECIFIC GRAVITY 1.017 (1.000-1.030)
[2017-02-28 08:37] LABS: BACTERIA NONE SEEN /HPF; EPITHELIAL CELLS 1+ /HPF; MUCUS TRACE /LPF; RED BLOOD CELLS 0-5 /HPF (0-5); UCUL ADDED? YES
[2017-02-28] MEDS ORDERED: ADDERALL XR 2020 MG PO ×2 (10:12)
[2017-02-28] MEDS ORDERED: GABAPENTIN100 MG PO (10:16)
[2017-02-28] MEDS ORDERED: POTASSIUM-9999 MG PO (10:16)
[2017-02-28 10:19] VITALS: BP 124/71
[2017-02-28 12:43] LABS: TYPE OF FLUID PARACENTESIS
[2017-02-28 13:00] LABS: BODY FLUID RBC'S < 1000 /MM^3 (0-100); BODY FLUID WBC'S 314 /MM^3 (0-500)
[2017-02-28 13:50] LABS: BODY FLUID LDH 59 IU/L; BODY FLUID PROTEIN < 3.0 G/DL
[2017-02-28 14:12] LABS: BODY FLUID EOSINOPHILS 0 % (0-25); MONONUCLEAR WBC'S 91 %; POLYNUCLEAR WBC'S 9 % (0-25)
[2017-02-28 14:32] LABS: IRON 32 MCG/DL (35-150); SAMPLE HEMOLYSIS CHECK 0; SAMPLE ICTERIC CHECK 0; SAMPLE LIPEMIA CHECK 1
[2017-02-28 15:13] LABS: FERRITIN 20 NG/ML (10-291)
[2017-02-28 15:18] VITALS: BP 154/90
[2017-02-28 20:02] LABS: HEMATOCRIT 29.2 % (36.0-46.0); MCV 88.8 FL (83-99)
[2017-02-28 20:33] VITALS: BP 130/73
[2017-03-01] VITALS (7 sets, daily range): BP systolic 126–150; BP diastolic 60–82
[2017-03-01 07:14] LABS: HEMATOCRIT 30.4 % (36.0-46.0); MCH 28.5 PG (29.0-34.0); MCHC 32.2 G/DL (30.0-36.0); MCV 88.4 FL (83-99); MEAN PLAT.VOLUME 11.7 uM^3 (9.5-12.4); PLATELET COUNT 86 K/uL (156-360); RBC DIS.WIDTH-SD 51.7 % (39-53); RED BLOOD COUNT 3.44 M/uL (3.80-5.20)
[2017-03-01 07:54] LABS: ALKALINE PHOSPHATASE 77 IU/L (3-129); ANION GAP 4 MEQ/L (2-14); CHLORIDE 113 MEQ/L (99-109); GFR ESTIMATE (CALCULATED) > 59 mL/min/; GLUCOSE 145 mg/dL (70-99); MAGNESIUM 1.8 mg/dl (1.3-2.7); POTASSIUM 4.7 MEQ/L (3.7-5.4); SAMPLE HEMOLYSIS CHECK 0; SAMPLE ICTERIC CHECK 0; SAMPLE LIPEMIA CHECK 0; SODIUM 140 MEQ/L (136-147); TOTAL BILIRUBIN 1.4 MG/DL (0.0-1.0); UREA NITROGEN (BUN) 23 mg/dL (9-23)
[2017-03-02 04:41] VITALS: BP 153/70
[2017-03-02 07:08] LABS: HEMATOCRIT 29.5 % (36.0-46.0); MCH 28.5 PG (29.0-34.0); MCHC 32.5 G/DL (30.0-36.0); MCV 87.5 FL (83-99); MEAN PLAT.VOLUME 11.1 uM^3 (9.5-12.4); PLATELET COUNT 80 K/uL (156-360); RBC DIS.WIDTH-CV 15.8 % (11.8-14.6); RBC DIS.WIDTH-SD 50.3 % (39-53); RED BLOOD COUNT 3.37 M/uL (3.80-5.20); WHITE BLOOD COUNT 4.2 K/uL (4.1-10.2)
[2017-03-02 07:44] VITALS: BP 141/85
[2017-03-02 11:29] VITALS: BP 138/65
[2017-03-02] MEDS ORDERED: DICYCLOMINE HCL10 MG PO (12:21)
[2017-03-02] MEDS ORDERED: ALDACTONE100 MG PO (12:21)
[2017-03-02] MEDS ORDERED: FUROSEMIDE20 MG PO (12:21)
[2017-03-02] MEDS ORDERED: TRAMADOL HCL50 MG PO (12:21)
[2017-03-02] MEDS ORDERED: GABAPENTIN300 MG PO (12:21)
== END 2017-03-02 16:56 | DRG 378 ==
LOC: EME 04:06 → 3EAST 07:35 → EDOF 07:35 → ENRESERV 07:41 → EDOF 08:03 → ENRESERV 08:59 → 3EAST 10:08
PROVIDERS: Internal Medicine; Physician Assistant
PROC: 0W9G3ZZ Drainage of Peritoneal Cavity, Percutaneous Approach (ICD-10-PCS; principal; 2017-03-01)
DX: K25.4 Chronic or unspecified gastric ulcer with hemorrhage (principal); K70.31 Alcoholic cirrhosis of liver with ascites; K70.11 Alcoholic hepatitis with ascites; B19.20 Unspecified viral hepatitis C without hepatic coma; K76.6 Portal hypertension; D69.59 Other secondary thrombocytopenia; F10.10 Alcohol abuse, uncomplicated; F12.90 Cannabis use, unspecified, uncomplicated; D64.9 Anemia, unspecified; D73.1 Hypersplenism; G89.29 Other chronic pain; I10 Essential (primary) hypertension; I89.0 Lymphedema, not elsewhere classified; Z96.651 Presence of right artificial knee joint; Z87.11 Personal history of peptic ulcer disease; Z88.0 Allergy status to penicillin; Z87.891 Personal history of nicotine dependence
CPT/HCPCS: 49083; 80053; 81003; 82728; 82945; 83540; 83615 91; 83735; 83986 90; 84157; 84466; 84484; 85014; 85018; 85027; 85610; 85730; 86850; 86900; 86901; 87070; 87075; 87086; 87205; 88108; 88305; 89051; 93005; 99281; 99285; C9113; J0696; J2270; J2354; J2405; J2765; J7050; J7120; P9047

== ENCOUNTER 2017-03-13 19:41 | Inpatient (IN) | payer OTHER ==
[~2017-03-13] VITALS: Ht 170.2 cm; Wt 85.1 kg
[~2017-03-13 19:41] MED LIST changes: +ADDERALL XR 2020 MG PO; +ALDACTONE100 MG PO; +DICYCLOMINE HCL10 MG PO; +FUROSEMIDE20 MG PO; +GABAPENTIN300 MG PO; +TRAMADOL HCL50 MG PO
[2017-03-13 20:09] LABS: MCH 28.4 PG (29.0-34.0); MCHC 33.5 G/DL (30.0-36.0); MCV 84.8 FL (83-99); MEAN PLAT.VOLUME 12.7 uM^3 (9.5-12.4); NRBC (%) 0.3 /100 WBC (0-0); PLATELET COUNT 130 K/uL (156-360); RBC DIS.WIDTH-CV 14.9 % (11.8-14.6); RBC DIS.WIDTH-SD 45.6 % (39-53); RED BLOOD COUNT 4.01 M/uL (3.80-5.20); WHITE BLOOD COUNT 6.1 K/uL (4.1-10.2)
[2017-03-13 20:18] LABS: CHLORIDE 101 mEq/L (99-109); POTASSIUM 3.6 mEq/L (3.7-5.4); SODIUM 130 mEq/L (136-147)
[2017-03-13 20:22] LABS: ANION GAP 14 MEQ/L (2-14); TOTAL BILIRUBIN 0.5 mg/dL (0.0-1.0)
[2017-03-13 20:24] LABS: ALKALINE PHOSPHATASE 131 IU/L (3-129); GFR ESTIMATE (CALCULATED) 45 mL/min/
[2017-03-13 20:25] LABS: ADD MIUA? NO; BILIRUBIN NEGATIVE; BLOOD NEGATIVE; COLOR STRAW ((YELLOW)); GLUCOSE (STRIP) >=500; KETONES NEGATIVE; LEUKOCYTES NEGATIVE; NITRITE NEGATIVE; PROTEIN (STRIP) NEGATIVE; SPECIFIC GRAVITY 1.031 (1.000-1.030); UCUL ADDED? NO; UROBILINOGEN 0.2 MG/DL (0.2-1.0)
[2017-03-13 20:25] LABS: UREA NITROGEN (BUN) 17 mg/dL (9-23)
[2017-03-13 20:27] LABS: LIPASE 124 U/L (1.0-51.0)
[2017-03-13 20:28] LABS: GLUCOSE 711 mg/dL (70-99)
[2017-03-13 21:30] LABS: CARBON DIOXIDE (BICARBONATE) 22.5 MEQ/L (20-31)
[2017-03-14 02:00] VITALS: BP 146/82
[2017-03-14 04:35] LABS: TOTAL BILIRUBIN 0.5 mg/dL (0.0-1.0)
[2017-03-14 04:37] LABS: ALKALINE PHOSPHATASE 106 IU/L (3-129)
[2017-03-14 04:39] LABS: DIRECT BILIRUBIN 0.4 mg/dL (0.0-0.3)
[2017-03-14 07:06] LABS: POINT-OF-CARE METER ID UU13113774
[2017-03-14 07:37] LABS: Estimated Average Glucose 163 mg/dL (70-123)
[2017-03-14 08:02] LABS: HEMOGLOBIN A1c (GLYCOHEMOGLOB) 7.3 % HGB (Below 5.7)
[2017-03-14 08:12] VITALS: BP 123/52
[2017-03-14 10:36] LABS: POINT-OF-CARE METER ID UU13113774
[2017-03-14 11:36] VITALS: BP 145/68
[2017-03-14 15:16] LABS: POINT-OF-CARE METER ID UU13113702
[2017-03-14 15:44] LABS: POINT-OF-CARE METER ID UU13113774
[2017-03-14 18:03] VITALS: BP 130/60
[2017-03-14 19:30] VITALS: BP 126/63
[2017-03-14 21:34] LABS: POINT-OF-CARE METER ID UU13113725
[2017-03-15] VITALS (7 sets, daily range): BP systolic 114–131; BP diastolic 55–74
[2017-03-15 05:33] LABS: POINT-OF-CARE METER ID UU13113725
[2017-03-15 06:11] LABS: EOSINOPHIL (%) 5.1 % (0-5); EOSINOPHIL COUNT 0.1 K/uL (0-0.3); HEMATOCRIT 28.2 % (36.0-46.0); IMMATURE GRANULOCYTE (%) 0.4 % (0.0-0.7); INSTRUMENT ABS NEUTROPHIL CT 1.2 K/uL; LYMPHOCYTE COUNT 0.7 K/uL (1.0-2.8); MCH 28.2 PG (29.0-34.0); MCV 82.9 FL (83-99); MONOCYTE (%) 12.8 % (3-12); MONOCYTE COUNT 0.3 K/uL (0-0.8); NEUTROPHIL (%) 50.2 % (45-76); NEUTROPHIL COUNT 1.2 K/uL (1.8-6.4); RBC DIS.WIDTH-CV 15.5 % (11.8-14.6); RBC DIS.WIDTH-SD 46.7 % (39-53); WHITE BLOOD COUNT 2.4 K/uL (4.1-10.2)
[2017-03-15 06:21] LABS: ANION GAP 5 MEQ/L (2-14); CHLORIDE 107 MEQ/L (99-109); POTASSIUM 3.6 MEQ/L (3.7-5.4); SAMPLE HEMOLYSIS CHECK 0; SAMPLE ICTERIC CHECK 0; SAMPLE LIPEMIA CHECK 0; UREA NITROGEN (BUN) 11 mg/dL (9-23)
[2017-03-15 06:23] LABS: GFR ESTIMATE (CALCULATED) > 59 mL/min/; GLUCOSE 113 mg/dL (70-99); SODIUM 139 MEQ/L (136-147)
[2017-03-15 06:55] LABS: MEAN PLAT.VOLUME 11.6 uM^3 (9.5-12.4); PLAT.SUFFICIENCY DECREASED
[2017-03-15 07:21] LABS: PLATELET COUNT 86 K/uL (156-360)
[2017-03-15 12:04] LABS: POINT-OF-CARE METER ID UU13113774
[2017-03-15 17:17] LABS: POINT-OF-CARE METER ID UU13113774
[2017-03-15 22:28] LABS: GLUCOSE 422 mg/dL (70-99)
[2017-03-16 02:59] LABS: POINT-OF-CARE METER ID UU13113725
[2017-03-16 04:10] VITALS: BP 113/69
[2017-03-16 06:06] LABS: POINT-OF-CARE METER ID UU13113725
[2017-03-16 07:36] VITALS: BP 119/76
[2017-03-16 09:17] LABS: MCH 27.8 PG (29.0-34.0); MCHC 32.1 G/DL (30.0-36.0); MCV 86.4 FL (83-99); RBC DIS.WIDTH-CV 15.9 % (11.8-14.6); RBC DIS.WIDTH-SD 50.3 % (39-53); RED BLOOD COUNT 3.24 M/uL (3.80-5.20)
[2017-03-16 09:30] LABS: ANION GAP 4 MEQ/L (2-14); CHLORIDE 103 MEQ/L (99-109); GFR ESTIMATE (CALCULATED) > 59 mL/min/; GLUCOSE 286 mg/dL (70-99); POTASSIUM 4.1 MEQ/L (3.7-5.4); SAMPLE HEMOLYSIS CHECK 1; SAMPLE ICTERIC CHECK 0; SAMPLE LIPEMIA CHECK 0; SODIUM 135 MEQ/L (136-147); UREA NITROGEN (BUN) 17 mg/dL (9-23)
[2017-03-16 09:43] LABS: WHITE BLOOD COUNT 1.3 K/uL (4.1-10.2)
[2017-03-16 11:47] LABS: POINT-OF-CARE METER ID UU13113725
[2017-03-16] MEDS ORDERED: GLIPIZIDE5 MG PO (15:26)
[2017-03-16 16:15] LABS: POINT-OF-CARE METER ID UU13113725
[2017-03-16 17:07] VITALS: BP 110/63
[2017-03-17 11:23] LABS: POINT-OF-CARE METER ID UU13113725
== END 2017-03-16 17:25 | disposition home or self-care (01) | DRG 392 ==
LOC: EME 19:41 → EDOF 23:52 → 5EAST 23:52 → ENRESERV 23:54 → 5EAST 03-14 00:48 → EDOF 03-14 00:48 → ENRESERV 03-14 00:51 → 5EAST 03-14 02:10
PROVIDERS: Emergency Medicine; Hospitalist
PROC: 0DJ08ZZ Inspection of Upper Intestinal Tract, Via Natural or Artificial Opening Endoscopic (ICD-10-PCS; principal; 2017-03-15)
DX: K59.00 Constipation, unspecified (principal); E86.0 Dehydration; K74.60 Unspecified cirrhosis of liver; B19.20 Unspecified viral hepatitis C without hepatic coma; I85.00 Esophageal varices without bleeding; K22.10 Ulcer of esophagus without bleeding; K29.70 Gastritis, unspecified, without bleeding; K76.6 Portal hypertension; K31.89 Other diseases of stomach and duodenum; K52.9 Noninfective gastroenteritis and colitis, unspecified; R18.8 Other ascites; D69.59 Other secondary thrombocytopenia; F11.20 Opioid dependence, uncomplicated; Z96.651 Presence of right artificial knee joint; G89.29 Other chronic pain; D64.9 Anemia, unspecified; I10 Essential (primary) hypertension; M19.90 Unspecified osteoarthritis, unspecified site; F32.9 Major depressive disorder, single episode, unspecified; Z79.4 Long term (current) use of insulin; F17.200 Nicotine dependence, unspecified, uncomplicated; Z85.05 Personal history of malignant neoplasm of liver; Z87.11 Personal history of peptic ulcer disease; I89.0 Lymphedema, not elsewhere classified
CPT/HCPCS: 74177; 76705; 80048; 80053; 80076; 81003; 82010; 82803; 82948; 83036; 83605; 83690; 84999; 85025; 85027; 85049; 99281; 99285; J0692; J1450; J1644; J1815; J1956; J2250; J2270; J2405; J3370; J7030; J7120

== ENCOUNTER 2017-04-12 22:43 | Emergency (ER) | payer OTHER ==
[~2017-04-12] VITALS: Ht 167.6 cm; Wt 77.3 kg
[~2017-04-12 22:43] MED LIST changes: +GLIPIZIDE5 MG PO
[2017-04-12 22:56] VITALS: BP 127/86
[2017-04-12 23:26] LABS: APPEARANCE CLOUDY ((CLEAR)); BILIRUBIN NEGATIVE; BLOOD SMALL; COLOR AMBER ((YELLOW)); GLUCOSE (STRIP) NEGATIVE; KETONES NEGATIVE; LEUKOCYTES MODERATE; NITRITE NEGATIVE; PROTEIN (STRIP) 30; SPECIFIC GRAVITY 1.023 (1.000-1.030)
[2017-04-12 23:38] LABS: HEMATOCRIT 33.9 % (36.0-46.0); HEMOGLOBIN 11.2 G/DL (11.9-15.5); MCH 27.3 PG (29.0-34.0); MCV 82.5 FL (83-99); PLATELET COUNT 117 K/uL (156-360); RBC DIS.WIDTH-SD 50.8 % (39-53); RED BLOOD COUNT 4.11 M/uL (3.80-5.20); WHITE BLOOD COUNT 4.3 K/uL (4.1-10.2)
[2017-04-12 23:41] LABS: BACTERIA RARE /HPF; CALCIUM OXALATE CRYSTALS 3+ /HPF; EPITHELIAL CELLS 1+ /HPF; MUCUS NONE SEEN /LPF; UCUL ADDED? NO; WHITE BLOOD CELLS 0-5 /HPF (0-5)
[2017-04-12 23:47] LABS: ALBUMIN 3.2 g/dL (3.2-4.8); CHLORIDE 116 mEq/L (99-109); POTASSIUM 3.4 mEq/L (3.7-5.4); SODIUM 146 mEq/L (136-147)
[2017-04-12 23:49] LABS: GLUCOSE 110 mg/dL (70-99)
[2017-04-12 23:50] LABS: TOTAL PROTEIN 8.2 g/dL (6.4-8.3)
[2017-04-12 23:51] LABS: TOTAL BILIRUBIN 0.7 mg/dL (0.0-1.0)
[2017-04-12 23:53] LABS: ALKALINE PHOSPHATASE 116 IU/L (3-129); CREATININE 0.8 mg/dL (0.6-1.3); GFR ESTIMATE (CALCULATED) > 59 mL/min/
[2017-04-12 23:54] LABS: UREA NITROGEN (BUN) 14 mg/dL (9-23)
[2017-04-12 23:55] LABS: AST (GOT) 86 IU/L (2-34)
[2017-04-12 23:56] LABS: ALT (GPT) 51 IU/L (3-49)
== END 2017-04-12 23:36 | disposition left against medical advice (07) ==
LOC: EME 22:43
DX: R10.9 Unspecified abdominal pain (principal); Z53.21 Procedure and treatment not carried out due to patient leaving prior to being seen by health care provider
CPT/HCPCS: 80053; 81003; 85027

== ENCOUNTER 2017-04-13 21:15 | Emergency (ER) | payer OTHER ==
[~2017-04-13] VITALS: Ht 167.6 cm; Wt 82.0 kg
[2017-04-13 23:36] LABS: BASOPHIL (%) 0.4 % (0-1); EOSINOPHIL (%) 3.5 % (0-5); EOSINOPHIL COUNT 0.1 K/uL (0-0.3); HEMATOCRIT 29.6 % (36.0-46.0); HEMOGLOBIN 9.9 G/DL (11.9-15.5); LYMPHOCYTE (%) 40.8 % (15-42); LYMPHOCYTE COUNT 1.2 K/uL (1.0-2.8); MCH 27.4 PG (29.0-34.0); MCHC 33.4 G/DL (30.0-36.0); MONOCYTE (%) 13.1 % (3-12); MONOCYTE COUNT 0.4 K/uL (0-0.8); NEUTROPHIL (%) 42.2 % (45-76); NEUTROPHIL COUNT 1.2 K/uL (1.8-6.4); PLATELET COUNT 83 K/uL (156-360); RBC DIS.WIDTH-CV 16.7 % (11.8-14.6); RBC DIS.WIDTH-SD 49.7 % (39-53); RED BLOOD COUNT 3.61 M/uL (3.80-5.20); WHITE BLOOD COUNT 2.8 K/uL (4.1-10.2)
[2017-04-13 23:45] LABS: ALBUMIN 2.9 g/dL (3.2-4.8); CHLORIDE 113 mEq/L (99-109); POTASSIUM 3.2 mEq/L (3.7-5.4); SODIUM 143 mEq/L (136-147)
[2017-04-13 23:47] LABS: GLUCOSE 129 mg/dL (70-99); TOTAL PROTEIN 7.3 g/dL (6.4-8.3)
[2017-04-13 23:49] LABS: TOTAL BILIRUBIN 0.7 mg/dL (0.0-1.0)
[2017-04-13 23:51] LABS: ALKALINE PHOSPHATASE 108 IU/L (3-129); CREATININE 0.7 mg/dL (0.6-1.3); GFR ESTIMATE (CALCULATED) > 59 mL/min/
[2017-04-13 23:52] LABS: UREA NITROGEN (BUN) 15 mg/dL (9-23)
[2017-04-13 23:53] LABS: AST (GOT) 71 IU/L (2-34)
[2017-04-13 23:54] LABS: ALT (GPT) 45 IU/L (3-49)
[2017-04-14] MEDS ORDERED: CIPRO500 MG PO (01:55)
[2017-04-14 03:54] VITALS: BP 165/99
== END 2017-04-14 03:56 | disposition home or self-care (01) ==
LOC: EME 21:15
PROVIDERS: Emergency Medicine Emergency Medical Services
DX: K52.9 Noninfective gastroenteritis and colitis, unspecified (principal); E86.0 Dehydration; M79.89 Other specified soft tissue disorders; R05 Cough; K74.60 Unspecified cirrhosis of liver; E11.9 Type 2 diabetes mellitus without complications; Z79.84 Long term (current) use of oral hypoglycemic drugs; Z87.442 Personal history of urinary calculi; F17.200 Nicotine dependence, unspecified, uncomplicated
CPT/HCPCS: 74177; 80053; 85025; 99281; 99285; J0780; J2270; J7040

== ENCOUNTER 2017-07-19 07:46 | Inpatient (IN) | payer OTHER ==
[~2017-07-19] VITALS: Ht 167.6 cm; Wt 90.2 kg
[~2017-07-19 07:46] MED LIST changes: +CIPRO500 MG PO
[2017-07-19 08:04] LABS: BASE EXCESS -13.2 mEq/L (-3 to +3); BICARBONATE 15.7 mEq/L (22-26); CARBOXY HGB 2.4 % (0-5); METHEMOGLOBIN 1.3 % (0-1.5); PO2 110 mm Hg (80-100)
[2017-07-19 08:05] LABS: COMMENTS - BLOOD GASES NAC+; DEVICE VENT; FI02 60 %; MECHANICAL RATE 18 resp/min; MODE A/C; PCO2 46 mm Hg (35-45); SITE LR; TOTAL RESP RATE 26 resp/min; pH 7.14 (7.35-7.45)
[2017-07-19 08:06] LABS: PEEP 5 CM/H20; TIDAL VOLUME 500 ML
[2017-07-19 08:28] LABS: BASOPHIL (%) 0.3 % (0-1); EOSINOPHIL (%) 0.1 % (0-5); HEMOGLOBIN 13.8 G/DL (11.9-15.5); IMMATURE GRANULOCYTE (%) 1.6 % (0.0-0.7); LYMPHOCYTE (%) 4.4 % (15-42); LYMPHOCYTE COUNT 0.6 K/uL (1.0-2.8); MCH 28.5 PG (29.0-34.0); MCHC 29.4 G/DL (30.0-36.0); MCV 96.9 FL (83-99); MONOCYTE (%) 6.5 % (3-12); MONOCYTE COUNT 0.9 K/uL (0-0.8); NEUTROPHIL (%) 87.1 % (45-76); PLATELET COUNT 201 K/uL (156-360); RBC DIS.WIDTH-CV 17.2 % (11.8-14.6); RBC DIS.WIDTH-SD 61.6 % (39-53); RED BLOOD COUNT 4.85 M/uL (3.80-5.20); WHITE BLOOD COUNT 13.8 K/uL (4.1-10.2)
[2017-07-19 08:37] LABS: INTER. NORMALIZED RATIO 1.2
[2017-07-19 08:38] LABS: ALBUMIN 3.7 g/dL (3.2-4.8); CHLORIDE 90 mEq/L (99-109); SODIUM 130 mEq/L (136-147)
[2017-07-19 08:40] LABS: PTT 21.3 SEC (25-37); TOTAL PROTEIN 8.1 g/dL (6.4-8.3)
[2017-07-19 08:43] LABS: SERUM ETHYL ALCOHOL < 10 mg/dL
[2017-07-19 08:44] LABS: ALKALINE PHOSPHATASE 140 IU/L (3-129); CREATININE 2.6 mg/dL (0.6-1.3); GFR ESTIMATE (CALCULATED) 20 mL/min/
[2017-07-19 08:45] LABS: AST (GOT) 36 IU/L (2-34); UREA NITROGEN (BUN) 32 mg/dL (9-23)
[2017-07-19 08:47] LABS: ACETAMINOPHEN (TYLENOL) < 10 mcg/mL (10-30); ALT (GPT) 71 IU/L (3-49); CREATINE KINASE 65 IU/L (1-294); TOTAL CK 65 IU/L (1-294)
[2017-07-19 08:49] LABS: TROP-I INTERPRETATION NEGATIVE; TROPONIN-I < 0.01 ng/mL (0.0-0.30)
[2017-07-19 08:52] LABS: GLUCOSE 1781 mg/dL (70-99)
[2017-07-19 08:53] LABS: CK-MB 2.6 ng/mL (0.0-4.9)
[2017-07-19 09:25] LABS: BASE EXCESS -9.6 mEq/L (-3 to +3); BICARBONATE 16.5 mEq/L (22-26); CARBOXY HGB 2.2 % (0-5); METHEMOGLOBIN 1.3 % (0-1.5); PCO2 36 mm Hg (35-45); PO2 97 mm Hg (80-100); SITE LR; pH 7.27 (7.35-7.45)
[2017-07-19 09:26] LABS: COMMENTS - BLOOD GASES NAC+; DEVICE VENT; FI02 60 %; MECHANICAL RATE 26 resp/min; MODE A/C; PEEP 5 CM/H20; TIDAL VOLUME 500 ML; TOTAL RESP RATE 26 resp/min
[2017-07-19 09:32] LABS: CARBON DIOXIDE (BICARBONATE) > 46.0 mEq/L (20-31); TOTAL BILIRUBIN 2.1 mg/dL (0.0-1.0)
[2017-07-19 09:35] LABS: SALICYLATE < 5.0 MG/DL (15-30)
[2017-07-19 09:44] LABS: AMPHETAMINE PRESUMPTIVE POSITIVE (500 ng/mL); BARBITURATES NEGATIVE (200 ng/mL); BENZODIAZEPINES NEGATIVE (150 ng/mL); BUPRENORPHINE NEGATIVE (10 ng/mL); COCAINE NEGATIVE (150 ng/mL); METHADONE NEGATIVE (200 ng/mL); METHAMPHETAMINE NEGATIVE (500 ng/mL); OPIATES (MORPHINE) NEGATIVE (100 ng/mL); OXYCODONE NEGATIVE (100 ng/mL); PHENCYCLIDINE NEGATIVE (25 ng/mL); PROPOXYPHENE NEGATIVE (300 ng/mL); THC CANNABINOIDS NEGATIVE (50 ng/mL); TRICYCLIC ANTIDEPRESSANTS NEGATIVE (300 ng/mL)
[2017-07-19 12:10] LABS: ALBUMIN 3.2 g/dL (3.2-4.8)
[2017-07-19 12:11] VITALS: BP 137/90
[2017-07-19 12:11] LABS: MAGNESIUM 2.5 mg/dL (1.3-2.7)
[2017-07-19 12:13] LABS: TOTAL PROTEIN 7.2 g/dL (6.4-8.3)
[2017-07-19 12:16] LABS: ALKALINE PHOSPHATASE 109 IU/L (3-129); CREATININE 2.3 mg/dL (0.6-1.3); GFR ESTIMATE (CALCULATED) 23 mL/min/; PHOSPHORUS 2.7 mg/dL (2.5-4.9)
[2017-07-19 12:17] LABS: CHLORIDE 105 mEq/L (99-109); POTASSIUM 3.9 mEq/L (3.7-5.4); SODIUM 145 mEq/L (136-147); TOTAL BILIRUBIN 1.5 mg/dL (0.0-1.0); UREA NITROGEN (BUN) 33 mg/dL (9-23)
[2017-07-19 12:18] LABS: AST (GOT) 40 IU/L (2-34)
[2017-07-19 12:19] LABS: ALT (GPT) 66 IU/L (3-49); CREATINE KINASE 61 IU/L (1-294); GLUCOSE 1188 mg/dL (70-99)
[2017-07-19 12:21] LABS: TROP-I INTERPRETATION NEGATIVE; TROPONIN-I 0.04 ng/mL (0.0-0.30)
[2017-07-19 12:59] VITALS: BP 111/73
[2017-07-19 13:16] LABS: TRIGLYCERIDES 200 MG/DL (Normal: <150)
[2017-07-19 14:01] VITALS: BP 130/84
[2017-07-19 14:15] LABS: HEMOGLOBIN A1c (GLYCOHEMOGLOB) 13.3 % (Below 5.7)
[2017-07-19 16:02] VITALS: BP 118/73
[2017-07-19 17:06] LABS: CHLORIDE 108 MEQ/L (99-109); GFR ESTIMATE (CALCULATED) 45 mL/min/; PHOSPHORUS 1.5 mg/dL (2.5-4.9); POTASSIUM 3.7 MEQ/L (3.7-5.4); SODIUM 145 MEQ/L (136-147); UREA NITROGEN (BUN) 31 mg/dL (9-23)
[2017-07-19 17:08] LABS: CREATININE 1.3 MG/DL (0.6-1.3); GLUCOSE 1160 mg/dL (70-99)
[2017-07-19 19:00] VITALS: BP 119/55
[2017-07-19 20:00] VITALS: BP 113/71
[2017-07-19 21:25] LABS: CHLORIDE 112 MEQ/L (99-109); CREATININE 1.4 MG/DL (0.6-1.3); GFR ESTIMATE (CALCULATED) 41 mL/min/; GLUCOSE 864 mg/dL (70-99); PHOSPHORUS 1.9 mg/dL (2.5-4.9); POTASSIUM 3.9 MEQ/L (3.7-5.4); SODIUM 148 MEQ/L (136-147); UREA NITROGEN (BUN) 32 mg/dL (9-23)
[2017-07-20 00:54] LABS: CHLORIDE 113 mEq/L (99-109); POTASSIUM 4.1 mEq/L (3.7-5.4); SODIUM 149 mEq/L (136-147)
[2017-07-20 00:59] LABS: PHOSPHORUS 2.8 mg/dL (2.5-4.9)
[2017-07-20 01:00] LABS: GFR ESTIMATE (CALCULATED) 29 mL/min/; UREA NITROGEN (BUN) 38 mg/dL (9-23)
[2017-07-20 01:02] LABS: CREATINE KINASE 85 IU/L (1-294); CREATININE 1.9 mg/dL (0.6-1.3); GLUCOSE 714 mg/dL (70-99)
[2017-07-20 01:03] LABS: APPEARANCE CLEAR ((CLEAR)); BILIRUBIN NEGATIVE; BLOOD SMALL; COLOR YELLOW ((YELLOW)); GLUCOSE (STRIP) >=500; KETONES 5; LEUKOCYTES NEGATIVE; NITRITE NEGATIVE; PROTEIN (STRIP) NEGATIVE; SPECIFIC GRAVITY 1.035 (1.000-1.030); UROBILINOGEN 0.2 MG/DL (0.2-1.0)
[2017-07-20 01:12] LABS: BACTERIA RARE /HPF; EPITHELIAL CELLS RARE /HPF; MUCUS TRACE /LPF; RED BLOOD CELLS 40-50 /HPF (0-5); UCUL ADDED? YES
[2017-07-20 04:00] VITALS: BP 112/65
[2017-07-20 05:00] VITALS: BP 119/60
[2017-07-20 05:00] LABS: CHLORIDE 115 mEq/L (99-109); POTASSIUM 4.1 mEq/L (3.7-5.4); SODIUM 149 mEq/L (136-147)
[2017-07-20 05:06] LABS: CREATININE 1.9 mg/dL (0.6-1.3); GFR ESTIMATE (CALCULATED) 29 mL/min/; PHOSPHORUS 3.2 mg/dL (2.5-4.9)
[2017-07-20 05:07] LABS: UREA NITROGEN (BUN) 38 mg/dL (9-23)
[2017-07-20 05:13] LABS: GLUCOSE 763 mg/dL (70-99)
[2017-07-20 05:20] LABS: PHOSPHORUS 3.2 mg/dL (2.5-4.9)
[2017-07-20 08:02] VITALS: BP 116/71
[2017-07-20 08:27] LABS: CHLORIDE 114 MEQ/L (99-109); CREATININE 1.5 MG/DL (0.6-1.3); GFR ESTIMATE (CALCULATED) 38 mL/min/; PHOSPHORUS 3.1 mg/dL (2.5-4.9); POTASSIUM 3.9 MEQ/L (3.7-5.4); SODIUM 148 MEQ/L (136-147); UREA NITROGEN (BUN) 43 mg/dL (9-23)
[2017-07-20 08:35] LABS: GLUCOSE 666 mg/dL (70-99)
[2017-07-20 15:24] VITALS: BP 108/53
[2017-07-20 16:02] VITALS: BP 112/62
[2017-07-20 19:00] VITALS: BP 111/55
[2017-07-21] VITALS: BP 118/69
[2017-07-21 04:00] VITALS: BP 120/67
[2017-07-21 05:56] LABS: PHOSPHORUS 2.8 mg/dL (2.5-4.9)
[2017-07-21 08:02] VITALS: BP 118/67
[2017-07-21 14:01] LABS: ALBUMIN 2.3 G/DL (3.2-4.8); ALKALINE PHOSPHATASE 62 IU/L (3-129); ALT (GPT) 38 IU/L (3-49); AST (GOT) 44 IU/L (2-34); CHLORIDE 116 MEQ/L (99-109); CREATININE 1.3 MG/DL (0.6-1.3); GFR ESTIMATE (CALCULATED) 45 mL/min/; MAGNESIUM 1.8 mg/dl (1.3-2.7); PHOSPHORUS 3.2 mg/dL (2.5-4.9); POTASSIUM 3.4 MEQ/L (3.7-5.4); SODIUM 146 MEQ/L (136-147); TOTAL BILIRUBIN 1.2 MG/DL (0.0-1.0); TOTAL PROTEIN 5.4 G/DL (6.4-8.3); UREA NITROGEN (BUN) 44 mg/dL (9-23)
[2017-07-21 14:08] LABS: GLUCOSE 427 mg/dL (70-99)
[2017-07-21 14:52] VITALS: BP 122/74
[2017-07-21 15:31] LABS: HEMATOCRIT 31.5 % (36.0-46.0); MCH 28.4 PG (29.0-34.0); MCHC 33.7 G/DL (30.0-36.0); RBC DIS.WIDTH-CV 18.7 % (11.8-14.6); RBC DIS.WIDTH-SD 56.9 % (39-53); WHITE BLOOD COUNT 6.7 K/uL (4.1-10.2)
[2017-07-21 15:46] LABS: BASOPHIL (%) 0.1 % (0-1); EOSINOPHIL (%) 0.1 % (0-5); HEMATOLOGY COMMENT 1 SN; HEMOGLOBIN 10.6 G/DL (11.9-15.5); IMMATURE GRANULOCYTE (%) 0.3 % (0.0-0.7); LYMPHOCYTE COUNT 0.7 K/uL (1.0-2.8); MONOCYTE (%) 7.7 % (3-12); MONOCYTE COUNT 0.5 K/uL (0-0.8); NEUTROPHIL (%) 80.8 % (45-76); NEUTROPHIL COUNT 5.4 K/uL (1.8-6.4); PLAT.SUFFICIENCY DECREASED; RED BLOOD COUNT 3.73 M/uL (3.80-5.20)
[2017-07-21 15:47] LABS: MCV 84.5 FL (83-99); PLATELET COUNT 62 K/uL (156-360)
[2017-07-21 16:02] VITALS: BP 118/68
[2017-07-21 20:02] VITALS: BP 127/86
[2017-07-22 00:02] VITALS: BP 111/68
[2017-07-22 04:02] VITALS: BP 120/72
[2017-07-22 05:32] LABS: BASOPHIL (%) 0.1 % (0-1); EOSINOPHIL (%) 0.2 % (0-5); HEMATOCRIT 33.1 % (36.0-46.0); IMMATURE GRANULOCYTE (%) 0.4 % (0.0-0.7); LYMPHOCYTE (%) 10.4 % (15-42); LYMPHOCYTE COUNT 0.8 K/uL (1.0-2.8); MCH 28.6 PG (29.0-34.0); MCHC 33.2 G/DL (30.0-36.0); MCV 86.2 FL (83-99); MONOCYTE COUNT 0.6 K/uL (0-0.8); NEUTROPHIL (%) 80.9 % (45-76); NEUTROPHIL COUNT 6.5 K/uL (1.8-6.4); NRBC (%) 0.2 /100 WBC (0-0); PLATELET COUNT 62 K/uL (156-360); RBC DIS.WIDTH-CV 18.8 % (11.8-14.6); RBC DIS.WIDTH-SD 58.8 % (39-53); RED BLOOD COUNT 3.84 M/uL (3.80-5.20)
[2017-07-22 07:12] LABS: ALBUMIN 2.4 G/DL (3.2-4.8); ALKALINE PHOSPHATASE 73 IU/L (3-129); ALT (GPT) 38 IU/L (3-49); AST (GOT) 48 IU/L (2-34); CHLORIDE 118 MEQ/L (99-109); CREATININE 1.2 MG/DL (0.6-1.3); GFR ESTIMATE (CALCULATED) 49 mL/min/; PHOSPHORUS 2.6 mg/dL (2.5-4.9); POTASSIUM 3.7 MEQ/L (3.7-5.4); SODIUM 149 MEQ/L (136-147); TOTAL BILIRUBIN 1.3 MG/DL (0.0-1.0); TOTAL PROTEIN 5.9 G/DL (6.4-8.3); UREA NITROGEN (BUN) 43 mg/dL (9-23)
[2017-07-22 07:17] LABS: GLUCOSE 423 mg/dL (70-99)
[2017-07-22 20:02] VITALS: BP 90/50
[2017-07-23 00:02] VITALS: BP 109/68
[2017-07-23 04:02] VITALS: BP 100/55
[2017-07-23 06:21] LABS: BASOPHIL (%) 0 % (0-1); EOSINOPHIL (%) 1.4 % (0-5); EOSINOPHIL COUNT 0.1 K/uL (0-0.3); HEMATOCRIT 32.2 % (36.0-46.0); HEMOGLOBIN 10.4 G/DL (11.9-15.5); IMMATURE GRANULOCYTE (%) 0.7 % (0.0-0.7); LYMPHOCYTE (%) 11.7 % (15-42); LYMPHOCYTE COUNT 0.5 K/uL (1.0-2.8); MCH 28.5 PG (29.0-34.0); MCHC 32.3 G/DL (30.0-36.0); MCV 88.2 FL (83-99); MONOCYTE (%) 8.2 % (3-12); MONOCYTE COUNT 0.4 K/uL (0-0.8); NEUTROPHIL COUNT 3.4 K/uL (1.8-6.4); NRBC (%) 0.5 /100 WBC (0-0); RBC DIS.WIDTH-CV 18.8 % (11.8-14.6); RED BLOOD COUNT 3.65 M/uL (3.80-5.20); WHITE BLOOD COUNT 4.4 K/uL (4.1-10.2)
[2017-07-23 06:45] LABS: ALBUMIN 2.1 G/DL (3.2-4.8); ALKALINE PHOSPHATASE 77 IU/L (3-129); ALT (GPT) 30 IU/L (3-49); AST (GOT) 34 IU/L (2-34); CHLORIDE 123 MEQ/L (99-109); GFR ESTIMATE (CALCULATED) > 59 mL/min/; GLUCOSE 311 mg/dL (70-99); MAGNESIUM 2.1 mg/dl (1.3-2.7); PHOSPHORUS 1.8 mg/dL (2.5-4.9); POTASSIUM 3.3 MEQ/L (3.7-5.4); SODIUM 150 MEQ/L (136-147); TOTAL BILIRUBIN 0.9 MG/DL (0.0-1.0); TOTAL PROTEIN 5.4 G/DL (6.4-8.3); UREA NITROGEN (BUN) 40 mg/dL (9-23)
[2017-07-23 06:59] LABS: IMM.PLATELET FRACTION 5.4 (1-7); PLAT.SUFFICIENCY DECREASED; PLATELET COUNT 49 K/uL (156-360)
[2017-07-23 08:02] VITALS: BP 96/64
[2017-07-23 12:02] VITALS: BP 114/60
[2017-07-23 20:02] VITALS: BP 108/66
[2017-07-24] VITALS (12 sets, daily range): BP systolic 96–121; BP diastolic 54–75
[2017-07-24 06:06] LABS: BASOPHIL (%) 0 % (0-1); EOSINOPHIL (%) 0.7 % (0-5); HEMATOCRIT 34.6 % (36.0-46.0); HEMOGLOBIN 11.1 G/DL (11.9-15.5); IMMATURE GRANULOCYTE (%) 0.5 % (0.0-0.7); LYMPHOCYTE (%) 17.6 % (15-42); LYMPHOCYTE COUNT 0.7 K/uL (1.0-2.8); MCH 28.7 PG (29.0-34.0); MCHC 32.1 G/DL (30.0-36.0); MCV 89.4 FL (83-99); MONOCYTE (%) 8.9 % (3-12); MONOCYTE COUNT 0.4 K/uL (0-0.8); NEUTROPHIL (%) 72.3 % (45-76); NEUTROPHIL COUNT 2.9 K/uL (1.8-6.4); NRBC (%) 0.5 /100 WBC (0-0); RBC DIS.WIDTH-CV 19.4 % (11.8-14.6); RED BLOOD COUNT 3.87 M/uL (3.80-5.20)
[2017-07-24 06:29] LABS: ALBUMIN 2.2 G/DL (3.2-4.8); ALKALINE PHOSPHATASE 65 IU/L (3-129); ALT (GPT) 28 IU/L (3-49); AST (GOT) 36 IU/L (2-34); CHLORIDE 122 MEQ/L (99-109); GFR ESTIMATE (CALCULATED) > 59 mL/min/; GLUCOSE 329 mg/dL (70-99); MAGNESIUM 2.1 mg/dl (1.3-2.7); POTASSIUM 3.8 MEQ/L (3.7-5.4); SODIUM 147 MEQ/L (136-147); TOTAL PROTEIN 5.5 G/DL (6.4-8.3); UREA NITROGEN (BUN) 32 mg/dL (9-23)
[2017-07-24 06:31] LABS: PHOSPHORUS 2.8 mg/dL (2.5-4.9)
[2017-07-24 08:29] LABS: HEMATOLOGY COMMENT 1 SMEAR COMPATIBLE; IMM.PLATELET FRACTION 9.8 (1-7); PLAT.SUFFICIENCY DECREASED; PLATELET COUNT 40 K/uL (156-360)
[2017-07-24 10:06] LABS: INTER. NORMALIZED RATIO 1.5
[2017-07-24 10:09] LABS: PTT 24.2 SEC (25-37)
[2017-07-24 10:46] LABS: HIGH-SENS C-REACTIVE PROTEIN 1.18 MG/DL (0.02-0.20)
[2017-07-25] VITALS (14 sets, daily range): BP systolic 84–106; BP diastolic 51–64
[2017-07-25 05:43] LABS: BASOPHIL (%) 0.3 % (0-1); EOSINOPHIL (%) 1.6 % (0-5); EOSINOPHIL COUNT 0.1 K/uL (0-0.3); HEMATOCRIT 29.9 % (36.0-46.0); HEMOGLOBIN 9.5 G/DL (11.9-15.5); IMMATURE GRANULOCYTE (%) 1.1 % (0.0-0.7); LYMPHOCYTE (%) 21.4 % (15-42); LYMPHOCYTE COUNT 0.8 K/uL (1.0-2.8); MCH 28.5 PG (29.0-34.0); MCHC 31.8 G/DL (30.0-36.0); MCV 89.8 FL (83-99); MONOCYTE (%) 9.5 % (3-12); MONOCYTE COUNT 0.4 K/uL (0-0.8); NEUTROPHIL (%) 66.1 % (45-76); NEUTROPHIL COUNT 2.4 K/uL (1.8-6.4); RBC DIS.WIDTH-SD 60.8 % (39-53); RED BLOOD COUNT 3.33 M/uL (3.80-5.20); WHITE BLOOD COUNT 3.7 K/uL (4.1-10.2)
[2017-07-25 06:11] LABS: ALBUMIN 2.2 G/DL (3.2-4.8); ALKALINE PHOSPHATASE 47 IU/L (3-129); ALT (GPT) 24 IU/L (3-49); AST (GOT) 39 IU/L (2-34); CHLORIDE 123 MEQ/L (99-109); CREATININE 0.9 MG/DL (0.6-1.3); GFR ESTIMATE (CALCULATED) > 59 mL/min/; MAGNESIUM 1.9 mg/dl (1.3-2.7); POTASSIUM 3.1 MEQ/L (3.7-5.4); SODIUM 153 MEQ/L (136-147); TOTAL PROTEIN 5.3 G/DL (6.4-8.3); UREA NITROGEN (BUN) 28 mg/dL (9-23)
[2017-07-25 06:12] LABS: GLUCOSE 123 mg/dL (70-99); TOTAL BILIRUBIN 1.4 MG/DL (0.0-1.0)
[2017-07-25 06:43] LABS: IMM.PLATELET FRACTION 8.1 (1-7); PLAT.SUFFICIENCY DECREASED; PLATELET COUNT 37 K/uL (156-360)
[2017-07-25] MEDS ORDERED: DESYREL100 MG PO (11:48)
[2017-07-25] MEDS ORDERED: PROTONIX40 MG PO (11:48)
[2017-07-26] VITALS: BP 110/65
[2017-07-26 02:50] VITALS: BP 111/79
[2017-07-26 05:57] LABS: BASOPHIL (%) 0.5 % (0-1); EOSINOPHIL (%) 2.8 % (0-5); EOSINOPHIL COUNT 0.1 K/uL (0-0.3); HEMATOCRIT 34.2 % (36.0-46.0); HEMOGLOBIN 10.6 G/DL (11.9-15.5); IMMATURE GRANULOCYTE (%) 1.2 % (0.0-0.7); LYMPHOCYTE (%) 20.8 % (15-42); LYMPHOCYTE COUNT 0.9 K/uL (1.0-2.8); MCH 27.5 PG (29.0-34.0); MCV 88.8 FL (83-99); MONOCYTE (%) 10.4 % (3-12); MONOCYTE COUNT 0.4 K/uL (0-0.8); NEUTROPHIL (%) 64.3 % (45-76); NEUTROPHIL COUNT 2.7 K/uL (1.8-6.4); NRBC (%) 0.5 /100 WBC (0-0); RBC DIS.WIDTH-SD 60.5 % (39-53); RED BLOOD COUNT 3.85 M/uL (3.80-5.20); WHITE BLOOD COUNT 4.2 K/uL (4.1-10.2)
[2017-07-26 06:32] LABS: IMM.PLATELET FRACTION 9.8 (1-7); PLAT.SUFFICIENCY DECREASED; PLATELET COUNT 44 K/uL (156-360)
[2017-07-26 06:47] LABS: ALBUMIN 2.3 G/DL (3.2-4.8); ALKALINE PHOSPHATASE 53 IU/L (3-129); CHLORIDE 120 MEQ/L (99-109); CREATININE 0.7 MG/DL (0.6-1.3); GFR ESTIMATE (CALCULATED) > 59 mL/min/; GLUCOSE 163 mg/dL (70-99); MAGNESIUM 1.7 mg/dl (1.3-2.7); PHOSPHORUS 2.4 mg/dL (2.5-4.9); POTASSIUM 3.3 MEQ/L (3.7-5.4); SODIUM 147 MEQ/L (136-147); TOTAL BILIRUBIN 1.6 MG/DL (0.0-1.0); TOTAL PROTEIN 5.5 G/DL (6.4-8.3); UREA NITROGEN (BUN) 23 mg/dL (9-23)
[2017-07-26 06:48] LABS: ALT (GPT) 54 IU/L (3-49); AST (GOT) 124 IU/L (2-34); VANCOMYCIN, TROUGH 7.7 MCG/ML (10-20)
[2017-07-26 17:35] LABS: C DIFF TOXIN NEGATIVE (NEGATIVE)
[2017-07-26 19:44] VITALS: BP 116/59
[2017-07-26 23:14] VITALS: BP 142/89
[2017-07-27 03:07] VITALS: BP 128/66
[2017-07-27 05:35] LABS: BASOPHIL (%) 0.2 % (0-1); EOSINOPHIL COUNT 0.2 K/uL (0-0.3); HEMATOCRIT 36.2 % (36.0-46.0); HEMOGLOBIN 11.5 G/DL (11.9-15.5); IMMATURE GRANULOCYTE (%) 1.2 % (0.0-0.7); LYMPHOCYTE (%) 17.8 % (15-42); LYMPHOCYTE COUNT 1.6 K/uL (1.0-2.8); MCH 28.8 PG (29.0-34.0); MCHC 31.8 G/DL (30.0-36.0); MCV 90.7 FL (83-99); MONOCYTE (%) 13.1 % (3-12); MONOCYTE COUNT 1.2 K/uL (0-0.8); NEUTROPHIL (%) 65.7 % (45-76); NEUTROPHIL COUNT 5.9 K/uL (1.8-6.4); RBC DIS.WIDTH-CV 19.5 % (11.8-14.6); RBC DIS.WIDTH-SD 62.3 % (39-53); RED BLOOD COUNT 3.99 M/uL (3.80-5.20)
[2017-07-27 05:44] LABS: PLATELET COUNT 78 K/uL (156-360)
[2017-07-27 05:52] LABS: ALBUMIN 2.6 G/DL (3.2-4.8); ALKALINE PHOSPHATASE 76 IU/L (3-129); ALT (GPT) 67 IU/L (3-49); AST (GOT) 101 IU/L (2-34); CHLORIDE 122 MEQ/L (99-109); CREATININE 0.7 MG/DL (0.6-1.3); GFR ESTIMATE (CALCULATED) > 59 mL/min/; MAGNESIUM 1.7 mg/dl (1.3-2.7); PHOSPHORUS 1.8 mg/dL (2.5-4.9); POTASSIUM 3.2 MEQ/L (3.7-5.4); SODIUM 148 MEQ/L (136-147); TOTAL BILIRUBIN 1.5 MG/DL (0.0-1.0); UREA NITROGEN (BUN) 18 mg/dL (9-23)
[2017-07-27 05:53] LABS: GLUCOSE 120 mg/dL (70-99); TOTAL PROTEIN 6.4 G/DL (6.4-8.3)
[2017-07-27 07:20] VITALS: BP 161/70
[2017-07-27 11:17] VITALS: BP 140/82
[2017-07-27 11:51] LABS: BASE EXCESS -6.8 mEq/L (-3 to +3); BICARBONATE 16.9 mEq/L (22-26); CARBOXY HGB 2.6 % (0-5); METHEMOGLOBIN 1.5 % (0-1.5)
[2017-07-27 11:52] LABS: O2 FLOW 0 L/MIN; PCO2 28 mm Hg (35-45); PO2 59 mm Hg (80-100); SITE RR; pH 7.39 (7.35-7.45)
[2017-07-27 11:53] LABS: COMMENTS - BLOOD GASES A+C+; DEVICE ROOM AIR; TOTAL RESP RATE 40 resp/min
[2017-07-27 15:15] VITALS: BP 135/66
[2017-07-27 19:10] VITALS: BP 160/83
[2017-07-28] VITALS (7 sets, daily range): BP systolic 102–141; BP diastolic 50–98
[2017-07-28 05:33] LABS: BASOPHIL (%) 0.4 % (0-1); EOSINOPHIL (%) 2.9 % (0-5); EOSINOPHIL COUNT 0.1 K/uL (0-0.3); HEMATOCRIT 30.9 % (36.0-46.0); HEMOGLOBIN 9.8 G/DL (11.9-15.5); IMMATURE GRANULOCYTE (%) 0.9 % (0.0-0.7); LYMPHOCYTE (%) 26.8 % (15-42); LYMPHOCYTE COUNT 1.2 K/uL (1.0-2.8); MCH 28.3 PG (29.0-34.0); MCHC 31.7 G/DL (30.0-36.0); MCV 89.3 FL (83-99); MONOCYTE (%) 14.1 % (3-12); MONOCYTE COUNT 0.6 K/uL (0-0.8); NEUTROPHIL (%) 54.9 % (45-76); NEUTROPHIL COUNT 2.5 K/uL (1.8-6.4); PLATELET COUNT 76 K/uL (156-360); RBC DIS.WIDTH-CV 19.4 % (11.8-14.6); RBC DIS.WIDTH-SD 60.5 % (39-53); RED BLOOD COUNT 3.46 M/uL (3.80-5.20); WHITE BLOOD COUNT 4.6 K/uL (4.1-10.2)
[2017-07-28 06:01] LABS: ALBUMIN 2.5 G/DL (3.2-4.8); ALKALINE PHOSPHATASE 71 IU/L (3-129); ALT (GPT) 60 IU/L (3-49); AST (GOT) 75 IU/L (2-34); CHLORIDE 121 MEQ/L (99-109); CREATININE 0.6 MG/DL (0.6-1.3); GFR ESTIMATE (CALCULATED) > 59 mL/min/; GLUCOSE 129 mg/dL (70-99); MAGNESIUM 1.6 mg/dl (1.3-2.7); POTASSIUM 3.2 MEQ/L (3.7-5.4); SODIUM 149 MEQ/L (136-147); TOTAL BILIRUBIN 1.2 MG/DL (0.0-1.0); TOTAL PROTEIN 5.9 G/DL (6.4-8.3); UREA NITROGEN (BUN) 13 mg/dL (9-23)
[2017-07-28 17:38] LABS: TYPE OF FLUID PARACENTESIS
[2017-07-28 18:27] LABS: BODY FLUID GLUCOSE 214 MG/DL; BODY FLUID LDH < 25 IU/L; BODY FLUID PROTEIN < 3.0 G/DL
[2017-07-28 18:35] LABS: APPEARANCE CLEAR-COLORLESS; BODY FLUID EOSINOPHILS 0 % (0-25); BODY FLUID RBC'S < 1000 /MM^3 (0-100); BODY FLUID WBC'S 67 /MM^3 (0-500); MONONUCLEAR WBC'S 68 %; POLYNUCLEAR WBC'S 32 % (0-25)
[2017-07-29 03:55] VITALS: BP 106/54
[2017-07-29 06:01] LABS: HEMATOCRIT 29.9 % (36.0-46.0); HEMOGLOBIN 9.7 G/DL (11.9-15.5); MCH 28.5 PG (29.0-34.0); MCHC 32.4 G/DL (30.0-36.0); MCV 87.9 FL (83-99); PLATELET COUNT 73 K/uL (156-360); RBC DIS.WIDTH-CV 19.8 % (11.8-14.6); RBC DIS.WIDTH-SD 60.5 % (39-53); WHITE BLOOD COUNT 3.3 K/uL (4.1-10.2)
[2017-07-29 06:23] LABS: ALBUMIN 2.3 G/DL (3.2-4.8); ALKALINE PHOSPHATASE 70 IU/L (3-129); ALT (GPT) 57 IU/L (3-49); AST (GOT) 71 IU/L (2-34); CHLORIDE 117 MEQ/L (99-109); CREATININE 0.6 MG/DL (0.6-1.3); GFR ESTIMATE (CALCULATED) > 59 mL/min/; GLUCOSE 123 mg/dL (70-99); POTASSIUM 3.1 MEQ/L (3.7-5.4); SODIUM 147 MEQ/L (136-147); TOTAL BILIRUBIN 1.2 MG/DL (0.0-1.0); TOTAL PROTEIN 5.6 G/DL (6.4-8.3); UREA NITROGEN (BUN) 10 mg/dL (9-23)
[2017-07-29 07:35] VITALS: BP 106/67
[2017-07-29 11:22] VITALS: BP 119/65
[2017-07-29 15:40] VITALS: BP 119/76
[2017-07-29 19:34] VITALS: BP 110/57
[2017-07-29 22:32] LABS: C DIFF TOXIN ND (NEGATIVE)
[2017-07-29 23:44] VITALS: BP 96/53
[2017-07-30 03:49] VITALS: BP 100/55
[2017-07-30 07:23] LABS: CHLORIDE 111 MEQ/L (99-109); POTASSIUM 3.3 MEQ/L (3.7-5.4); SODIUM 140 MEQ/L (136-147)
[2017-07-30 07:28] LABS: CREATININE 0.5 MG/DL (0.6-1.3); GFR ESTIMATE (CALCULATED) > 59 mL/min/; GLUCOSE 94 mg/dL (70-99); UREA NITROGEN (BUN) 9 mg/dL (9-23)
[2017-07-30 07:56] VITALS: BP 110/70
[2017-07-30 12:48] VITALS: BP 115/59
[2017-07-30 15:48] VITALS: BP 100/66
[2017-07-30 20:23] VITALS: BP 98/55
[2017-07-30 22:21] VITALS: BP 94/46
[2017-07-31 03:06] VITALS: BP 96/61
[2017-07-31 06:31] LABS: HEMATOCRIT 28.6 % (36.0-46.0); HEMOGLOBIN 9.3 G/DL (11.9-15.5); MCH 28.4 PG (29.0-34.0); MCHC 32.5 G/DL (30.0-36.0); MCV 87.2 FL (83-99); PLATELET COUNT 76 K/uL (156-360); RBC DIS.WIDTH-CV 18.6 % (11.8-14.6); RBC DIS.WIDTH-SD 59.1 % (39-53); RED BLOOD COUNT 3.28 M/uL (3.80-5.20); WHITE BLOOD COUNT 3.6 K/uL (4.1-10.2)
[2017-07-31 06:51] LABS: CHLORIDE 109 MEQ/L (99-109); CREATININE 0.5 MG/DL (0.6-1.3); GFR ESTIMATE (CALCULATED) > 59 mL/min/; GLUCOSE 68 mg/dL (70-99); POTASSIUM 3.5 MEQ/L (3.7-5.4); SODIUM 140 MEQ/L (136-147); UREA NITROGEN (BUN) 9 mg/dL (9-23)
[2017-07-31 07:25] VITALS: BP 101/55
[2017-07-31 12:29] VITALS: BP 103/64
[2017-07-31 13:45] LABS: BODY FLUID PH 7.8 (())
[2017-07-31 16:34] VITALS: BP 101/60
[2017-07-31 20:32] VITALS: BP 103/60
[2017-08-01 00:35] VITALS: BP 105/64
[2017-08-01 03:49] VITALS: BP 168/56
[2017-08-01 06:10] LABS: HEMOGLOBIN 9.4 G/DL (11.9-15.5); MCH 28.2 PG (29.0-34.0); MCHC 32.4 G/DL (30.0-36.0); MCV 87.1 FL (83-99); PLATELET COUNT 74 K/uL (156-360); RBC DIS.WIDTH-CV 18.4 % (11.8-14.6); RBC DIS.WIDTH-SD 58.1 % (39-53); RED BLOOD COUNT 3.33 M/uL (3.80-5.20); WHITE BLOOD COUNT 2.8 K/uL (4.1-10.2)
[2017-08-01 06:40] LABS: CHLORIDE 110 MEQ/L (99-109); CREATININE 0.6 MG/DL (0.6-1.3); GFR ESTIMATE (CALCULATED) > 59 mL/min/; POTASSIUM 3.9 MEQ/L (3.7-5.4); SODIUM 140 MEQ/L (136-147); UREA NITROGEN (BUN) 9 mg/dL (9-23)
[2017-08-01 06:48] LABS: GLUCOSE 86 mg/dL (70-99)
[2017-08-01 08:17] VITALS: BP 95/49
[2017-08-02 00:44] VITALS: BP 98/53
[2017-08-02 06:12] LABS: HEMATOCRIT 29.3 % (36.0-46.0); HEMOGLOBIN 9.3 G/DL (11.9-15.5); MCH 28.1 PG (29.0-34.0); MCHC 31.7 G/DL (30.0-36.0); MCV 88.5 FL (83-99); PLATELET COUNT 74 K/uL (156-360); RBC DIS.WIDTH-CV 17.8 % (11.8-14.6); RED BLOOD COUNT 3.31 M/uL (3.80-5.20); WHITE BLOOD COUNT 2.5 K/uL (4.1-10.2)
[2017-08-02 06:38] LABS: ALBUMIN 2.2 G/DL (3.2-4.8); ALKALINE PHOSPHATASE 75 IU/L (3-129); ALT (GPT) 45 IU/L (3-49); AST (GOT) 61 IU/L (2-34); CHLORIDE 107 MEQ/L (99-109); CREATININE 0.6 MG/DL (0.6-1.3); GFR ESTIMATE (CALCULATED) > 59 mL/min/; POTASSIUM 4.4 MEQ/L (3.7-5.4); SODIUM 138 MEQ/L (136-147); TOTAL PROTEIN 5.3 G/DL (6.4-8.3); UREA NITROGEN (BUN) 9 mg/dL (9-23)
[2017-08-02 06:39] LABS: GLUCOSE 257 mg/dL (70-99)
[2017-08-02 07:38] VITALS: BP 97/52
[2017-08-02 14:20] VITALS: BP 106/57
[2017-08-02] MEDS ORDERED: LEVETIRACETAM500 MG PO (14:23)
[2017-08-02] MEDS ORDERED: Chronulac,Cephulac,E PO (14:24)
[2017-08-02] MEDS ORDERED: FAMOTIDINE40 MG PO (14:25)
[2017-08-02] MEDS ORDERED: LEVEMIR100 UNIT/2 SC (14:26)
[2017-08-02] MEDS ORDERED: GLIPIZIDE5 MG PO (14:26)
[2017-08-02] MEDS ORDERED: BACITRACIN28.4 GM TP (14:27)
[2017-08-02 16:14] VITALS: BP 127/72
== END 2017-08-02 17:00 | DRG 64 ==
LOC: EME 07:46 → 4WEST 09:39 → 4EAST 09:39 → EDOF 09:39 → 3EAST 09:39 → ENRESERV 09:41 → EDOF 09:50 → ENRESERV 10:09 → 4WEST 12:03 → ENRESERV 07-25 22:41 → 4EAST 07-26 02:51 → ENRESERV 07-29 14:18 → 3EAST 07-29 15:40
PROVIDERS: Emergency Medicine; Hospitalist; Internal Medicine; Student in an Organized Health Care Education/Training Program
DX: I62.00 Nontraumatic subdural hemorrhage, unspecified (principal); G40.411 Other generalized epilepsy and epileptic syndromes, intractable, with status epilepticus; E11.01 Type 2 diabetes mellitus with hyperosmolarity with coma; R57.9 Shock, unspecified; G93.41 Metabolic encephalopathy; J69.0 Pneumonitis due to inhalation of food and vomit; J96.01 Acute respiratory failure with hypoxia; N17.9 Acute kidney failure, unspecified; E72.51 Non-ketotic hyperglycinemia; K70.31 Alcoholic cirrhosis of liver with ascites; K70.41 Alcoholic hepatic failure with coma; F05 Delirium due to known physiological condition; D69.59 Other secondary thrombocytopenia; R13.10 Dysphagia, unspecified; K76.6 Portal hypertension; D64.9 Anemia, unspecified; E87.2 Acidosis; B18.2 Chronic viral hepatitis C; E87.6 Hypokalemia; I85.10 Secondary esophageal varices without bleeding; I10 Essential (primary) hypertension; F32.9 Major depressive disorder, single episode, unspecified; I85.00 Esophageal varices without bleeding; M19.90 Unspecified osteoarthritis, unspecified site; I89.0 Lymphedema, not elsewhere classified; G89.4 Chronic pain syndrome; K21.9 Gastro-esophageal reflux disease without esophagitis; F10.20 Alcohol dependence, uncomplicated; F11.20 Opioid dependence, uncomplicated; F15.20 Other stimulant dependence, uncomplicated; F17.210 Nicotine dependence, cigarettes, uncomplicated; Z91.19 Patient's noncompliance with other medical treatment and regimen; Z87.11 Personal history of peptic ulcer disease; Z87.442 Personal history of urinary calculi; Z79.84 Long term (current) use of oral hypoglycemic drugs; Z59.0 Homelessness; Z88.0 Allergy status to penicillin
CPT/HCPCS: 36600; 49083; 70450; 71045; 71250; 74176; 74230; 80048; 80048 91; 80053; 80202; 81003; 82140; 82533 91; 82550; 82550 91; 82553; 82803; 82945; 82948; 83036; 83605; 83615 91; 83735; 83880; 83986 90; 84100; 84145 90; 84157; 84443; 84478; 84484; 84999; 85025; 85027; 85610; 85730; 86141; 87040; 87070; 87077; 87086; 87106; 87205; 87493; 87641; 89051; 92526 GN; 92610 GN; 92611 GN; 93005; 94002; 94003; 94010; 94640; 94640 76; 94799; 95819; 97530 GP; 99202; 99281; 99285; C1751; G0480; J0692; J0696; J1170; J1815; J1940; J1953; J2060; J2250; J2704; J3370; J7050; P9047; S0028; S0030

== ENCOUNTER 2017-08-18 22:01 | Emergency (ER) | payer OTHER ==
[~2017-08-18] VITALS: Ht 165.1 cm; Wt 77.1 kg
[~2017-08-18 22:01] MED LIST changes: +BACITRACIN28.4 GM TP; +Chronulac,Cephulac,E PO; +FAMOTIDINE40 MG PO; +LEVEMIR100 UNIT/2 SC; +LEVETIRACETAM500 MG PO; +PROTONIX40 MG PO
[2017-08-18 23:06] LABS: HEMATOCRIT 28.2 % (36.0-46.0); HEMOGLOBIN 9.7 G/DL (11.9-15.5); MCH 28.6 PG (29.0-34.0); MCHC 34.4 G/DL (30.0-36.0); PLATELET COUNT 81 K/uL (156-360); RBC DIS.WIDTH-CV 16.5 % (11.8-14.6); RBC DIS.WIDTH-SD 50.3 % (39-53); RED BLOOD COUNT 3.39 M/uL (3.80-5.20); WHITE BLOOD COUNT 3.7 K/uL (4.1-10.2)
[2017-08-18 23:11] LABS: CHLORIDE 108 mEq/L (99-109); SODIUM 139 mEq/L (136-147)
[2017-08-18 23:13] LABS: GLUCOSE 128 mg/dL (70-99); TOTAL PROTEIN 6.9 g/dL (6.4-8.3)
[2017-08-18 23:15] LABS: TOTAL BILIRUBIN 2.5 mg/dL (0.0-1.0)
[2017-08-18 23:16] LABS: SERUM ETHYL ALCOHOL < 10 mg/dL
[2017-08-18 23:17] LABS: ALKALINE PHOSPHATASE 93 IU/L (3-129); CREATININE 0.7 mg/dL (0.6-1.3); GFR ESTIMATE (CALCULATED) > 59 mL/min/
[2017-08-18 23:18] LABS: AST (GOT) 55 IU/L (2-34); UREA NITROGEN (BUN) 19 mg/dL (9-23)
[2017-08-18 23:20] LABS: ALT (GPT) 29 IU/L (3-49); LIPASE 20 U/L (1.0-51.0)
[2017-08-18] MEDS ORDERED: BACTRIM,SEPT1 TABLET PO (23:36)
[2017-08-19 00:05] VITALS: BP 133/77
[2017-08-19 00:25] LABS: MCV 83.2 FL (83-99)
== END 2017-08-18 23:27 | disposition home or self-care (01) ==
LOC: EME 22:01
PROVIDERS: Emergency Medicine
DX: L03.115 Cellulitis of right lower limb (principal); L03.116 Cellulitis of left lower limb; D61.818 Other pancytopenia; E87.6 Hypokalemia; Z53.21 Procedure and treatment not carried out due to patient leaving prior to being seen by health care provider; I10 Essential (primary) hypertension; E11.9 Type 2 diabetes mellitus without complications; R56.9 Unspecified convulsions; F32.9 Major depressive disorder, single episode, unspecified; F17.200 Nicotine dependence, unspecified, uncomplicated; Z86.73 Personal history of transient ischemic attack (TIA), and cerebral infarction without residual deficits; Z87.19 Personal history of other diseases of the digestive system; Z87.442 Personal history of urinary calculi; Z88.0 Allergy status to penicillin
CPT/HCPCS: 71045; 80053; 83605; 83690; 83880; 85027; 87040; 99281; 99284; G0480

== ENCOUNTER 2017-09-27 14:44 | Inpatient (IN) | payer OTHER ==
[~2017-09-27] VITALS: Ht 167.6 cm; Wt 70.7 kg
[2017-09-27 16:02] LABS: BASOPHIL (%) 0.5 % (0-1); EOSINOPHIL (%) 4.2 % (0-5); EOSINOPHIL COUNT 0.2 K/uL (0-0.3); HEMATOCRIT 29.4 % (36.0-46.0); HEMOGLOBIN 10.2 G/DL (11.9-15.5); IMMATURE GRANULOCYTE (%) 0.3 % (0.0-0.7); LYMPHOCYTE (%) 30.4 % (15-42); LYMPHOCYTE COUNT 1.2 K/uL (1.0-2.8); MCH 29.7 PG (29.0-34.0); MCHC 34.7 G/DL (30.0-36.0); MCV 85.7 FL (83-99); MONOCYTE (%) 12.8 % (3-12); MONOCYTE COUNT 0.5 K/uL (0-0.8); NEUTROPHIL (%) 51.8 % (45-76); PLATELET COUNT 104 K/uL (156-360); RBC DIS.WIDTH-CV 15.8 % (11.8-14.6); RBC DIS.WIDTH-SD 49.2 % (39-53); RED BLOOD COUNT 3.43 M/uL (3.80-5.20); WHITE BLOOD COUNT 3.8 K/uL (4.1-10.2)
[2017-09-27 16:16] LABS: CHLORIDE 108 mEq/L (99-109); POTASSIUM 3.7 mEq/L (3.7-5.4); SODIUM 137 mEq/L (136-147)
[2017-09-27 16:18] LABS: GLUCOSE 242 mg/dL (70-99)
[2017-09-27 16:22] LABS: CREATININE 0.8 mg/dL (0.6-1.3); GFR ESTIMATE (CALCULATED) > 59 mL/min/
[2017-09-27 16:23] LABS: UREA NITROGEN (BUN) 15 mg/dL (9-23)
[2017-09-27 18:26] LABS: APPEARANCE CLEAR ((CLEAR)); BILIRUBIN NEGATIVE; BLOOD NEGATIVE; COLOR YELLOW ((YELLOW)); GLUCOSE (STRIP) 50; KETONES NEGATIVE; LEUKOCYTES SMALL; NITRITE NEGATIVE; PROTEIN (STRIP) NEGATIVE; SPECIFIC GRAVITY 1.008 (1.000-1.030); UROBILINOGEN 0.2 MG/DL (0.2-1.0)
[2017-09-27 18:46] LABS: BACTERIA RARE /HPF; EPITHELIAL CELLS RARE /HPF; MUCUS TRACE /LPF; RED BLOOD CELLS 0-5 /HPF (0-5); UCUL ADDED? YES
[2017-09-27] MEDS ORDERED: LITE COAT ASPI325 M1 PO (18:59)
[2017-09-27] MEDS ORDERED: CLEOCIN300 MG PO (18:59)
[2017-09-27] MEDS ORDERED: ADVIL200 MG PO (18:59)
[2017-09-27] MEDS ORDERED: ONE DAILY1 EAC3 PO (18:59)
[2017-09-27] MEDS ORDERED: ADDERALL30 MG PO (19:00)
[2017-09-27 19:05] LABS: ALBUMIN 2.9 G/DL (3.2-4.8); ALKALINE PHOSPHATASE 87 IU/L (3-129); ALT (GPT) 54 IU/L (3-49); AST (GOT) 84 IU/L (2-34); C-REACTIVE PROTEIN 4.9 MG/L (0-10); DIRECT BILIRUBIN 0.3 mg/dL (0.0-0.3); TOTAL BILIRUBIN 0.7 MG/DL (0.0-1.0); TOTAL PROTEIN 6.6 G/DL (6.4-8.3)
[2017-09-27 20:50] VITALS: BP 99/56
[2017-09-28 00:09] VITALS: BP 107/60
[2017-09-28 07:08] VITALS: BP 111/67
[2017-09-28 11:55] VITALS: BP 130/86; BP 132/59
[2017-09-28 16:14] VITALS: BP 128/56
[2017-09-29] VITALS: BP 113/83
[2017-09-29 06:40] LABS: BASOPHIL (%) 0.9 % (0-1); EOSINOPHIL (%) 5.2 % (0-5); EOSINOPHIL COUNT 0.1 K/uL (0-0.3); HEMATOCRIT 29.2 % (36.0-46.0); HEMOGLOBIN 9.7 G/DL (11.9-15.5); IMMATURE GRANULOCYTE (%) 0.4 % (0.0-0.7); LYMPHOCYTE (%) 28.3 % (15-42); LYMPHOCYTE COUNT 0.7 K/uL (1.0-2.8); MCH 28.7 PG (29.0-34.0); MCHC 33.2 G/DL (30.0-36.0); MCV 86.4 FL (83-99); MONOCYTE (%) 14.8 % (3-12); MONOCYTE COUNT 0.3 K/uL (0-0.8); NEUTROPHIL (%) 50.4 % (45-76); NEUTROPHIL COUNT 1.2 K/uL (1.8-6.4); PLATELET COUNT 82 K/uL (156-360); RBC DIS.WIDTH-CV 15.6 % (11.8-14.6); RBC DIS.WIDTH-SD 49.3 % (39-53); RED BLOOD COUNT 3.38 M/uL (3.80-5.20); WHITE BLOOD COUNT 2.3 K/uL (4.1-10.2)
[2017-09-29 07:06] LABS: ALBUMIN 2.7 G/DL (3.2-4.8); ALKALINE PHOSPHATASE 76 IU/L (3-129); ALT (GPT) 53 IU/L (3-49); AST (GOT) 81 IU/L (2-34); CHLORIDE 110 MEQ/L (99-109); CREATININE 0.7 MG/DL (0.6-1.3); GFR ESTIMATE (CALCULATED) > 59 mL/min/; GLUCOSE 141 mg/dL (70-99); POTASSIUM 3.8 MEQ/L (3.7-5.4); SODIUM 139 MEQ/L (136-147); TOTAL PROTEIN 6.4 G/DL (6.4-8.3); UREA NITROGEN (BUN) 18 mg/dL (9-23)
[2017-09-29 07:35] VITALS: BP 124/73
[2017-09-29 08:08] LABS: VANCOMYCIN, TROUGH 21.1 MCG/ML (10-20)
[2017-09-29 15:27] VITALS: BP 137/79
[2017-09-29 20:24] VITALS: BP 157/80
[2017-09-30 04:19] VITALS: BP 119/64
[2017-09-30 05:54] LABS: BASOPHIL (%) 0.8 % (0-1); EOSINOPHIL (%) 4.3 % (0-5); EOSINOPHIL COUNT 0.1 K/uL (0-0.3); HEMATOCRIT 29.7 % (36.0-46.0); HEMOGLOBIN 9.8 G/DL (11.9-15.5); LYMPHOCYTE (%) 25.3 % (15-42); LYMPHOCYTE COUNT 0.7 K/uL (1.0-2.8); MCH 28.4 PG (29.0-34.0); MCV 86.1 FL (83-99); MONOCYTE (%) 14.4 % (3-12); MONOCYTE COUNT 0.4 K/uL (0-0.8); NEUTROPHIL (%) 55.2 % (45-76); NEUTROPHIL COUNT 1.4 K/uL (1.8-6.4); PLATELET COUNT 84 K/uL (156-360); RBC DIS.WIDTH-CV 15.4 % (11.8-14.6); RBC DIS.WIDTH-SD 48.5 % (39-53); RED BLOOD COUNT 3.45 M/uL (3.80-5.20); WHITE BLOOD COUNT 2.6 K/uL (4.1-10.2)
[2017-09-30 06:16] LABS: ALBUMIN 3.1 G/DL (3.2-4.8); ALKALINE PHOSPHATASE 82 IU/L (3-129); ALT (GPT) 63 IU/L (3-49); AST (GOT) 96 IU/L (2-34); CHLORIDE 107 MEQ/L (99-109); CREATININE 0.8 MG/DL (0.6-1.3); GFR ESTIMATE (CALCULATED) > 59 mL/min/; GLUCOSE 169 mg/dL (70-99); POTASSIUM 3.9 MEQ/L (3.7-5.4); SODIUM 137 MEQ/L (136-147); TOTAL BILIRUBIN 1.1 MG/DL (0.0-1.0); TOTAL PROTEIN 7.1 G/DL (6.4-8.3); UREA NITROGEN (BUN) 17 mg/dL (9-23)
== END 2017-09-30 07:29 | disposition left against medical advice (07) | DRG 617 ==
LOC: EME 14:44 → 3EAST 18:04 → EDOF 18:04 → ENRESERV 18:06 → 3EAST 21:24
PROVIDERS: Emergency Medicine; Hospitalist; Internal Medicine
PROC: 0Y6T0Z0 Detachment at Right 3rd Toe, Complete, Open Approach (ICD-10-PCS; principal; 2017-09-29)
DX: E11.69 Type 2 diabetes mellitus with other specified complication (principal); M86.171 Other acute osteomyelitis, right ankle and foot; K70.31 Alcoholic cirrhosis of liver with ascites; I85.10 Secondary esophageal varices without bleeding; B18.2 Chronic viral hepatitis C; D61.818 Other pancytopenia; E11.65 Type 2 diabetes mellitus with hyperglycemia; E11.42 Type 2 diabetes mellitus with diabetic polyneuropathy; E11.621 Type 2 diabetes mellitus with foot ulcer; L97.519 Non-pressure chronic ulcer of other part of right foot with unspecified severity; K76.6 Portal hypertension; S91.144A Puncture wound with foreign body of right lesser toe(s) without damage to nail, initial encounter; W25.XXXA Contact with sharp glass, initial encounter; W45.8XXA Other foreign body or object entering through skin, initial encounter; K72.90 Hepatic failure, unspecified without coma; G40.909 Epilepsy, unspecified, not intractable, without status epilepticus; I27.20 Pulmonary hypertension, unspecified; K21.9 Gastro-esophageal reflux disease without esophagitis; G89.29 Other chronic pain; I10 Essential (primary) hypertension; B35.1 Tinea unguium; M19.90 Unspecified osteoarthritis, unspecified site; M81.0 Age-related osteoporosis without current pathological fracture; F39 Unspecified mood [affective] disorder; F10.20 Alcohol dependence, uncomplicated; F11.10 Opioid abuse, uncomplicated; F17.210 Nicotine dependence, cigarettes, uncomplicated; Z87.01 Personal history of pneumonia (recurrent); Z86.14 Personal history of Methicillin resistant Staphylococcus aureus infection; Z86.73 Personal history of transient ischemic attack (TIA), and cerebral infarction without residual deficits; Z79.4 Long term (current) use of insulin; Z91.14 Patient's other noncompliance with medication regimen; Z96.651 Presence of right artificial knee joint; Z88.0 Allergy status to penicillin
CPT/HCPCS: 73630; 73660; 73720; 80048; 80053; 80076; 80202; 81003; 82140; 82948; 83605; 85025; 85651; 86140; 87040; 87070; 87075; 87086; 87205; 88305; 88311; 93005; 93925; 99202; 99281; 99285; J0692; J1815; J3370; J7030; S0020

== ENCOUNTER 2017-10-21 00:29 | Inpatient (IN) | payer OTHER ==
[2017-10-21] VITALS (7 sets, daily range): BP systolic 120–158; BP diastolic 56–90
[~2017-10-21] VITALS: Ht 165.1 cm; Wt 74.2 kg
[~2017-10-21 00:29] MED LIST changes: +ADDERALL30 MG PO; +ADVIL200 MG PO; +CLEOCIN300 MG PO; +LITE COAT ASPI325 M1 PO; +ONE DAILY1 EAC3 PO
[2017-10-21 00:58] LABS: HEMATOCRIT 30.3 % (36.0-46.0); HEMOGLOBIN 10.3 G/DL (11.9-15.5); MCH 28.2 PG (29.0-34.0); PLATELET COUNT 84 K/uL (156-360); RBC DIS.WIDTH-CV 15.3 % (11.8-14.6); RBC DIS.WIDTH-SD 46.5 % (39-53); RED BLOOD COUNT 3.65 M/uL (3.80-5.20); WHITE BLOOD COUNT 3.1 K/uL (4.1-10.2)
[2017-10-21 01:13] LABS: CHLORIDE 105 mEq/L (99-109); POTASSIUM 2.9 mEq/L (3.7-5.4); SODIUM 138 mEq/L (136-147)
[2017-10-21 01:15] LABS: GLUCOSE 176 mg/dL (70-99)
[2017-10-21 01:16] LABS: TOTAL PROTEIN 7.2 g/dL (6.4-8.3)
[2017-10-21 01:17] LABS: TOTAL BILIRUBIN 1.3 mg/dL (0.0-1.0)
[2017-10-21 01:19] LABS: ALKALINE PHOSPHATASE 108 IU/L (3-129); CREATININE 0.8 mg/dL (0.6-1.3); GFR ESTIMATE (CALCULATED) > 59 mL/min/
[2017-10-21 01:20] LABS: UREA NITROGEN (BUN) 12 mg/dL (9-23)
[2017-10-21 01:21] LABS: AST (GOT) 57 IU/L (2-34)
[2017-10-21 01:22] LABS: ALT (GPT) 32 IU/L (3-49)
[2017-10-21 01:38] LABS: APPEARANCE CLEAR ((CLEAR)); BILIRUBIN NEGATIVE; BLOOD NEGATIVE; COLOR STRAW ((YELLOW)); GLUCOSE (STRIP) 50; KETONES NEGATIVE; LEUKOCYTES NEGATIVE; NITRITE NEGATIVE; PROTEIN (STRIP) 100; SPECIFIC GRAVITY 1.012 (1.000-1.030); UROBILINOGEN 0.2 MG/DL (0.2-1.0)
[2017-10-21 01:45] LABS: COCAINE NEGATIVE (150 ng/mL); METHAMPHETAMINE NEGATIVE (500 ng/mL); PHENCYCLIDINE NEGATIVE (25 ng/mL); THC CANNABINOIDS NEGATIVE (50 ng/mL)
[2017-10-21 01:46] LABS: AMPHETAMINE NEGATIVE (500 ng/mL); BARBITURATES NEGATIVE (200 ng/mL); BENZODIAZEPINES NEGATIVE (150 ng/mL); BUPRENORPHINE NEGATIVE (10 ng/mL); METHADONE NEGATIVE (200 ng/mL); OPIATES (MORPHINE) NEGATIVE (100 ng/mL); OXYCODONE NEGATIVE (100 ng/mL); PROPOXYPHENE NEGATIVE (300 ng/mL); TRICYCLIC ANTIDEPRESSANTS NEGATIVE (300 ng/mL)
[2017-10-21 01:49] LABS: BACTERIA NONE SEEN /HPF; EPITHELIAL CELLS RARE /HPF; MUCUS TRACE /LPF; RED BLOOD CELLS 0-5 /HPF (0-5); UCUL ADDED? NO; WHITE BLOOD CELLS 0-5 /HPF (0-5)
[2017-10-21 01:55] LABS: SERUM ETHYL ALCOHOL < 10 mg/dL
[2017-10-21 01:58] LABS: ACETAMINOPHEN (TYLENOL) < 10 mcg/mL (10-30)
[2017-10-21 01:59] LABS: LIPASE 50 U/L (1.0-51.0)
[2017-10-21 02:53] LABS: SALICYLATE < 3.0 MG/DL (15-30)
[2017-10-21 04:45] LABS: MAGNESIUM 1.3 mg/dL (1.3-2.7)
[2017-10-21 04:57] LABS: TROP-I INTERPRETATION NEGATIVE; TROPONIN-I 0.02 ng/mL (0.0-0.30)
[2017-10-21 04:58] LABS: CK-MB 1.7 ng/mL (0.0-4.9)
[2017-10-21 05:24] LABS: CKMB RELATIVE INDEX 2.4 (0.0-3.9); CREATINE KINASE 71 IU/L (1-294); TOTAL CK 71 IU/L (1-294)
[2017-10-21 11:09] LABS: HEMOGLOBIN A1c (GLYCOHEMOGLOB) 5.2 % (Below 5.7)
[2017-10-22 03:09] VITALS: BP 118/58
[2017-10-22 07:12] LABS: HEMATOCRIT 29.6 % (36.0-46.0); HEMOGLOBIN 9.7 G/DL (11.9-15.5); MCH 27.1 PG (29.0-34.0); MCHC 32.8 G/DL (30.0-36.0); MCV 82.7 FL (83-99); PLATELET COUNT 76 K/uL (156-360); RBC DIS.WIDTH-CV 14.8 % (11.8-14.6); RBC DIS.WIDTH-SD 44.9 % (39-53); RED BLOOD COUNT 3.58 M/uL (3.80-5.20); WHITE BLOOD COUNT 2.7 K/uL (4.1-10.2)
[2017-10-22 07:13] LABS: TROP-I INTERPRETATION NEGATIVE; TROPONIN-I 0.02 ng/mL (0.0-0.30)
[2017-10-22 07:19] VITALS: BP 121/67
[2017-10-22 07:36] LABS: ALBUMIN 2.6 G/DL (3.2-4.8); ALKALINE PHOSPHATASE 72 IU/L (3-129); ALT (GPT) 24 IU/L (3-49); AST (GOT) 49 IU/L (2-34); CHLORIDE 108 MEQ/L (99-109); CREATININE 0.7 MG/DL (0.6-1.3); GFR ESTIMATE (CALCULATED) > 59 mL/min/; GLUCOSE 132 mg/dL (70-99); POTASSIUM 3.2 MEQ/L (3.7-5.4); SODIUM 141 MEQ/L (136-147); TOTAL BILIRUBIN 1.8 MG/DL (0.0-1.0); TOTAL PROTEIN 6.3 G/DL (6.4-8.3); UREA NITROGEN (BUN) 11 mg/dL (9-23)
[2017-10-22] MEDS ORDERED: KEPPRA500 MG PO (12:40)
[2017-10-22] MEDS ORDERED: LACTULOSE10 GM/151 PO (12:40)
[2017-10-22] MEDS ORDERED: GLIPIZIDE5 MG PO (12:42)
[2017-10-22] MEDS ORDERED: LEVEMIR100 UNIT/2 SC (12:43)
[2017-10-22] MEDS ORDERED: OMEPRAZOLE20 MG PO (12:44)
[2017-10-22] MEDS ORDERED: AMPHETAMINE SAL30 MG PO (12:47)
[2017-10-22] MEDS ORDERED: DESYREL100 MG PO (12:47)
[2017-10-22] MEDS ORDERED: ASPIRIN325 MG PO (12:48)
== END 2017-10-22 14:08 | disposition home or self-care (01) | DRG 640 ==
LOC: EME → EDBD 00:29 → EDOF 03:32 → ENRESERV 03:35 → 3EAST 04:45
PROVIDERS: Emergency Medicine; Hospitalist; Physician Assistant
DX: E87.6 Hypokalemia (principal); E83.42 Hypomagnesemia; D61.818 Other pancytopenia; E11.65 Type 2 diabetes mellitus with hyperglycemia; F10.20 Alcohol dependence, uncomplicated; I27.20 Pulmonary hypertension, unspecified; G93.40 Encephalopathy, unspecified; G40.909 Epilepsy, unspecified, not intractable, without status epilepticus; I10 Essential (primary) hypertension; K21.9 Gastro-esophageal reflux disease without esophagitis; F17.210 Nicotine dependence, cigarettes, uncomplicated; B19.20 Unspecified viral hepatitis C without hepatic coma; K70.31 Alcoholic cirrhosis of liver with ascites; R29.6 Repeated falls; F39 Unspecified mood [affective] disorder; Z59.0 Homelessness; Z89.421 Acquired absence of other right toe(s); Z91.14 Patient's other noncompliance with medication regimen; Z96.651 Presence of right artificial knee joint; F32.9 Major depressive disorder, single episode, unspecified; G89.29 Other chronic pain; R55 Syncope and collapse
CPT/HCPCS: 70450; 71046; 80053; 81003; 82140; 82550; 82553; 82948; 83036; 83605; 83690; 83735; 84484; 85027; 99281; 99285; G0480; J1644; J1815; J3411; J3475; J3480; J7030